=== PATIENT | male | born 1955 | race Caucasian/White ===

== ENCOUNTER → 2020-10-01 12:15 | Outpatient (BNVA) | payer OTHER, SELFPAY | PROVIDERS: Visit Provider Surgery | DX: Z76.89 Persons encountering health services in other specified circumstances (principal) ==

== ENCOUNTER 2020-10-11 06:07 | Day surgery (SDC) | payer OTHER, SELFPAY ==
[2020-10-05 14:45] VITALS: BMI 35.2
--- NOTE | 2020-10-08 13:21 | HO.ANESPROP2 ---
Documented by User: Ana Mcmahon 10/08/20 13:22 HPI - Anesthesia Eval Consult details Narrative: 65yo M for Hernia Repair Inguinal [facility] Past Medical History Medical History Hypercholesterolemia Obesity CARLOZ on CPAP Surgical History Surgical History History of total right hip replacement (~2013) Hx of colonoscopy Social History Social History Are you a primary date night caregiver to a significant other at home: No Do you presently have visiting nurse or other home services: No Alcohol intake: never Smoking Status: Former smoker Second Hand Smoke Exposure: No Use of substances other than those prescribed or required for medical reasons: No Advance Directives: No Advance Directives Information Provided: No Advance Directives on File: No Recently lost weight without trying: No Meds Allergies Allergy/AdvReac Type Severity Reaction Status Date / Time bee pollen [bee stings] Allergy Swelling Verified 10/11/20 06:46 Home Medications Medication Instructions Recorded Confirmed Type atorvastatin 40 mg tablet 40 mg PO DAILY 10/01/20 10/11/20 History Exam Exam Date and Time: October 08, 2020 1321 Height,Weight and Vital Signs: Height 6 ft Weight 117.934 kg Assessment and Plan Assessment Anesthesia Assessment: Chart Reviewed Documented by User: Ivan Kaur 10/11/20 07:10 [facility] Past Medical History Medical History Hypercholesterolemia Obesity CARLOZ on CPAP Family History Family history of problems with anesthesia: No Surgical History Surgical History History of total right hip replacement (~2013) Hx of colonoscopy History of Problems with Anesthesia: No Social History Social History Are you a primary date night caregiver to a significant other at home: No Do you presently have visiting nurse or other home services: No Alcohol intake: never Smoking Status: Former smoker Second Hand Smoke Exposure: No Use of substances other than those prescribed or required for medical reasons: No Advance Directives: No Advance Directives Information Provided: No Advance Directives on File: No Recently lost weight without trying: No Meds Allergies Allergy/AdvReac Type Severity Reaction Status Date / Time bee pollen [bee stings] Allergy Swelling Verified 10/11/20 06:46 Home Medications Medication Instructions Recorded Confirmed Type atorvastatin 40 mg tablet 40 mg PO DAILY 10/01/20 10/11/20 History Assessment and Plan Assessment Anesthesia Assessment: Anesthesia Plan Discussed and Chart Reviewed Final Anesthetic Review NPO: Yes ASA Class: III Final Preanesthetic Review: No Changes in Pt Med Stat, Meds/Allgs Chart Reviewed, Consent Obtained/Reviewed and Anes Risks/Benef Reviewed Patient Risk: Low Procedure Risk: Low Anesthetic Plan Anesthetic Plan: GA and Agree w/ Assess. and Plan Disposition: Standard PACU
[2020-10-11] VITALS (9 sets, daily range): BP systolic 133–150; BP diastolic 67–82; PULSE 53–65; RESP 16; TEMP 35.9–36.6; O2SAT 95–97
[2020-10-11] MEDS: Lactated Ringers 1,000 ML 125 ML IVCONT (06:44)
[2020-10-11] MEDS: ceFAZolin Sodium/Dextrose,Iso 2 GM/50 ML PIGGYBACK IV (06:45)
--- NOTE | 2020-10-11 07:33 | MHC.SHP ---
Pre-Procedural Eval Section A The patient is an INPATIENT: No Changes since office visit: Yes Patient answered all questions; No Cold of Flu in the past 2 weeks, No New Medical Problems and No Changes in Medication The History & Physical has been completed within 30 days and I have reviewed it.: Yes Section B Chief Complaint: Left inguinal hernia Allergies: Allergies Allergy/AdvReac Type Severity Reaction Status Date / Time bee pollen [bee stings] Allergy Swelling Verified 10/11/20 06:46 Plan Diagnosis/Plan: Unchanged Patient has been examined and remains a candidate for the planned procedure
--- NOTE | 2020-10-11 07:41 | PM.OP ---
Brief Operative Note Date of Service: 10/11/20 Pre-op diagnosis: LEFT INGUINAL HERNI Post-op diagnosis: same Procedure: REPAIR OF LEFT INGUINAL HERNIA WITH MESH Implants: PHS LARGE Surgeon: Miguel Angel Sharp MD Anesthesia: GLMA Education Supervisor: Steph Byrd Estimated blood loss (mL): 5 Pathology: other (LEFT HERNIA SAC) Condition: stable Disposition: PACU
--- NOTE | 2020-10-11 08:39 | P.OP_ITS ---
Operative Note Operative Note Date of Service: 10/11/20 Narrative: Preoperative diagnosis: left inguinal hernia Postoperative diagnosis: same Procedure: Repair of left inguinal hernia with mesh Surgeon: Miguel Angel Sharp MD Photoengraving Photographer: NERI Morataya Anesthesia: General LMA Indications: 65-year-old male presenting with a palpable lump in the left groin which increases in size with Valsalva maneuvers and reduces with light pressure. Findings: Patient found to have a large indirect left inguinal hernia without incarceration. This was repaired using an extended large PHS mesh Specimen: Hernia sac left EBL: 5 ml Complications: none Operative details: Patient was brought to the OR placed in a supine position. After administering general anesthesia the patient's abdomen was prepped with ChloraPrep and draped in sterile fashion. A surgical time-out was called and the consent confirmed. Patient received preoperative antibiotics and Venodyne boots were in place. Local anesthesia consisting of 0.75% Sensorcaine was infiltrated over the left inguinal ligament. Incision was then made with a scalpel carried out through subcutaneous tissue past Caroline's fashion up to the external oblique aponeurosis. This was then incised with a scalpel widened with the Metzenbaum scissors. Spermatic cord was then dissected free from the surrounding inguinal canal. The cord was then retracted using a Qing drain. Mild weakness was noted in the inguinal floor. Fibers of the cremasteric muscle were then and a large hernia sac identified. This was dissected down into the internal ring. Sac was opened and contents reduced. The sac was then ligated with a 0 Polysorb suture and excised. This was sent as a specimen labeled left inguinal sac. A large extended PHS mesh was then obtained. The circular underlay was then placed through the large opening of the internal ring. The circular underlay was then deployed in the preperitoneal space. The overlay was then secured to the conjoined tendon, pubic tubercle, and shelving edge of the inguinal ligament. A slit was made in the mesh at the internal ring and wrapped around the spermatic cord. This was then secured to the shelving edge of the inguinal ligament using 0 Polysorb suture. The internal ring was felt to be tight enough to allow passage of the tip of the index finger. Additional sutures were placed medial securing the mesh to the shelving edge of the inguinal ligament. Wounds were then irrigated with saline and suctioned dry. Additional local anesthesia was applied this time. External oblique aponeurosis was then closed using a running 2 0 Polysorb suture. Caroline's fascia and dermis were then reapproximated using interrupted 3 0 Polysorb sutures. Skin was closed using a running subcuticular 4 0 Polysorb suture. Steri-Strips 4 x 4 gauze and Tegaderm were then applied. The patient tolerated the procedure well. Sponge, instrument, needle counts reported as correct. The patient was transported to the PACU in stable condition.
[2020-10-11] MEDS: Acetaminophen 325 MG TABLET 650 MG PO (09:22)
[2020-10-11] MEDS: Ketorolac Tromethamine 15 MG/ML VIAL IVPUSH (09:23)
[2020-10-11] MEDS: oxyCODONE HCl Immed Release 5 MG TABLET PO (09:40)
--- NOTE | 2020-10-11 10:06 | HO.POSTANES ---
Post Anesthesia Evaluation Post Anesthesia Evaluation Vital Signs: Vital Signs Temp Pulse Resp BP Pulse Ox 10/11/20 09:48 98 F 53 16 133/67 97 10/11/20 09:34 56 16 138/72 96 10/11/20 09:19 98 F 56 16 141/78 H 97 10/11/20 09:04 57 16 140/80 H 95 10/11/20 08:59 60 16 142/82 H 96 10/11/20 08:54 65 16 149/81 H 97 10/11/20 08:49 98 F 61 16 144/79 H 96 10/11/20 06:17 96.6 F L 58 16 150/74 H 96 10/11/20 06:15 96.6 F L 16 Anesthesia: General LMA Mental Status: Awake Pain Control: Satisfactory Nausea/Vomiting: None Hydration: Adequate Anesthesia-Related Issues: No Anes. Related Issues
== END 2020-10-11 10:25 ==
LOC: HO.SSS 06:07
PROVIDERS: Visit Provider Surgery
PROC: (CPT 49505; principal; 2020-10-11 07:30)
DX: K40.90 Unilateral inguinal hernia, without obstruction or gangrene, not specified as recurrent (principal)
CPT/HCPCS: 49505; 88302; C1781; J0690; J1885; J2250; J3010

== ENCOUNTER → 2020-10-26 11:33 | Outpatient (BNVA) | payer OTHER, SELFPAY | PROVIDERS: Visit Provider Surgery | DX: Z76.89 Persons encountering health services in other specified circumstances (principal) ==

== ENCOUNTER → 2020-11-26 09:20 | Outpatient (BNVA) | payer OTHER, SELFPAY | PROVIDERS: Visit Provider Surgery ==

== ENCOUNTER 2021-01-11 06:52 | Outpatient (REF) | payer OTHER, SELFPAY ==
--- NOTE | ~2021-01-11 | XR_ITS ---
EXAMINATION: XR KNEE, LEFT CLINICAL INFORMATION: Pain left knee. COMPARISON: None. TECHNIQUE: 4 views of the left knee. FINDINGS: There is mild loss of medial and patellofemoral compartment joint space with minimal suprapatellar joint effusion. There is no loose bodies or bony erosive changes. There is a small anterior tibial enthesophyte. No acute fracture or subluxation. XR/XR knee LT 4V IMPRESSION: Mild degenerative changes medial and patellofemoral compartment with minimal suprapatellar joint effusion.
[2021-01-11 08:03] LABS: Hematocrit 42.7 % (42-52); Hemoglobin 14.6 g/dl (14.0-18.0); Mean Corpuscular HGB Conc 34.2 g/dl (31.0-36.0); Mean Corpuscular Hemoglobin 30.2 pg (27.0-33.0); Mean Corpuscular Volume 88.4 fL (80-98); Mean Platelet Volume 8.5 fL (9.4-12.4); Platelet Count 224 X10*3/uL (160-400); Red Blood Count 4.83 X10*6/uL (4.60-5.80); Red Cell Distribution Width 12.8 % (11.0-16.0)
[2021-01-11 08:08] LABS: Estimated Average Glucose 108 mg/dL; Hemoglobin A1c % 5.4 %
[2021-01-11 08:37] LABS: Alanine Aminotransferase 24 U/L (0-40); Albumin Level 4.2 g/dL (3.5-5.0); Alkaline Phosphatase 108 U/L (39-117); Anion Gap 11 (12-20); Aspartate Amino Transferase 20 U/L (5-37); Bilirubin Total 0.8 mg/dL (0.0-1.0); Blood Urea Nitrogen 21 mg/dL (9-16); Carbon Dioxide 25 mmol/L (22-29); Chloride 106 mmol/L (96-108); Cholesterol 140 mg/dL; Estimated Glomerular Filt Rate > 60; Glucose Fasting 104 mg/dL (60-99); HDL Cholesterol 47 mg/dL; LDL Cholesterol Calculated 80 mg/dl; Potassium 4.1 mmol/L (3.3-5.1); Sodium 138 mmol/L (135-145); Total Protein 6.6 g/dL (6.5-8.0); Triglycerides 67 mg/dL
[2021-01-11 08:49] LABS: Prostate Specific Antigen Scr 3.72 ng/mL (<0.05-4.0)
== END 2021-01-11 06:53 | disposition home or self-care (01) ==
LOC: HO.LAB 06:52
PROVIDERS: PCP Physician Assistant; Visit Provider Physician Assistant
DX: M25.562 Pain in left knee (principal); I10 Essential (primary) hypertension; E78.5 Hyperlipidemia, unspecified; Z13.1 Encounter for screening for diabetes mellitus; Z12.5 Encounter for screening for malignant neoplasm of prostate
CPT/HCPCS: 36415; 73564; 80053; 80061; 83036; 84153; 85027

== ENCOUNTER 2022-01-12 06:56 | Outpatient (REF) | payer OTHER, SELFPAY ==
[2022-01-12 07:21] LABS: Hematocrit 43.4 % (42.0-52.0); Hemoglobin 14.6 g/dl (14.0-18.0); Mean Corpuscular HGB Conc 33.6 g/dl (31.0-36.0); Mean Corpuscular Hemoglobin 30.2 pg (27.0-33.0); Mean Corpuscular Volume 89.9 fL (80.0-98.0); Platelet Count 203 X10*3/uL (160-400); Red Blood Count 4.83 X10*6/uL (4.60-5.80)
[2022-01-12 07:46] LABS: Alanine Aminotransferase 32 U/L (0-40); Albumin Level 4.1 g/dL (3.5-5.0); Alkaline Phosphatase 106 U/L (39-117); Anion Gap 11 (12-20); Aspartate Amino Transferase 20 U/L (5-37); Bilirubin Total 0.6 mg/dL (0.0-1.0); Blood Urea Nitrogen 17 mg/dL (9-16); Calcium 9.7 mg/dL (8.4-10.2); Carbon Dioxide 25 mmol/L (22-29); Chloride 109 mmol/L (96-108); Cholesterol 151 mg/dL; Estimated Glomerular Filt Rate > 60; Glucose Fasting 116 mg/dL (60-99); HDL Cholesterol 48 mg/dL; LDL Cholesterol Calculated 91 mg/dl; Potassium 4.2 mmol/L (3.3-5.1); Sodium 141 mmol/L (135-145); Total Protein 6.7 g/dL (6.5-8.0); Triglycerides 62 mg/dL
[2022-01-12 08:14] LABS: TSH reflex Free T4 7.88 uIU/mL (0.32-4.0)
[2022-01-12 08:19] LABS: Estimated Average Glucose 114 mg/dL; Hemoglobin A1c % 5.6 %
[2022-01-12 11:32] LABS: Free T4 (Free Thyroxine) 0.96 ng/dL (0.71-1.85); Prostate Specific Antigen Scr 3.71 ng/mL (<0.05-4.0)
== END 2022-01-12 06:57 | disposition home or self-care (01) ==
LOC: HO.LAB 06:56
PROVIDERS: PCP Physician Assistant; Visit Provider Physician Assistant
DX: E78.2 Mixed hyperlipidemia (principal); I10 Essential (primary) hypertension; Z12.5 Encounter for screening for malignant neoplasm of prostate
CPT/HCPCS: 36415; 80053; 80061; 82306; 83036; 84153; 84439; 84443; 85027

== ENCOUNTER 2023-08-13 07:10 | Outpatient (REF) | payer OTHER, SELFPAY ==
[2023-08-13 07:34] LABS: Hematocrit 45.1 % (42.0-52.0); Hemoglobin 15.5 g/dl (14.0-18.0); Mean Corpuscular HGB Conc 34.4 g/dl (31.0-36.0); Mean Corpuscular Hemoglobin 30.7 pg (27.0-33.0); Mean Corpuscular Volume 89.3 fL (80.0-98.0); Mean Platelet Volume 8.7 fL (9.4-12.4); Platelet Count 197 X10*3/uL (160-400); Red Blood Count 5.05 X10*6/uL (4.60-5.80); Red Cell Distribution Width 12.8 % (11.0-16.0); White Blood Count 4.9 X10*3/uL (4.8-10.8)
[2023-08-13 08:18] LABS: Alanine Aminotransferase 17 U/L (0-40); Albumin Level 4.1 g/dL (3.5-5.0); Alkaline Phosphatase 100 U/L (39-117); Anion Gap 14 (12-20); Aspartate Amino Transferase 22 U/L (5-37); Bilirubin Total 0.5 mg/dL (0.0-1.0); Blood Urea Nitrogen 16 mg/dL (9-16); Calcium 9.5 mg/dL (8.4-10.2); Carbon Dioxide 19 mmol/L (22-29); Chloride 110 mmol/L (96-108); Cholesterol 210 mg/dL (<200); Estimated Glomerular Filt Rate > 60; Glucose Fasting 113 mg/dL (60-99); HDL Cholesterol 48 mg/dL (>40); LDL Cholesterol Calculated 148 mg/dL (<100); Potassium 4.3 mmol/L (3.3-5.1); Sodium 139 mmol/L (135-145); Total Protein 7.4 g/dL (6.5-8.0); Triglycerides 70 mg/dL (<150)
[2023-08-13 08:29] LABS: TSH reflex Free T4 7.25 uIU/mL (0.32-4.0)
[2023-08-13 09:07] LABS: Free T4 (Free Thyroxine) 0.79 ng/dL (0.71-1.85)
== END 2023-08-13 07:11 | disposition home or self-care (01) ==
LOC: HO.LAB 07:10
PROVIDERS: PCP Physician Assistant; Visit Provider Physician Assistant
DX: R79.89 Other specified abnormal findings of blood chemistry (principal); E78.2 Mixed hyperlipidemia
CPT/HCPCS: 36415; 80053; 80061; 84439; 84443; 85027

== ENCOUNTER 2023-08-15 15:57 | Outpatient (AMB) | payer OTHER, SELFPAY ==
[2023-08-15 15:58] VITALS: BP 140/82; PULSE 55; O2SAT 98; BMI 35.1
--- NOTE | 2023-08-15 15:58 | A.OFFPC_ITS ---
Vital Signs 08/15/23 15:58 Height 6 ft Weight 259 lb BMI 35.1 BP 140/82 H Blood Pressure Location Lt brachial Position Sitting Pulse 55 Pulse Source Pulse Oximeter Pulse Oximetry (%) 98 Oxygen Delivery Method Room Air Intake Visit Reasons: PE Intake Note: Patient is here today for a physical. Wide Area Network Systems Administrator Required: No Accompanied by: Self / Same As Patient Allergies bee pollen [bee stings] Allergy (Verified 08/15/23 16:09) Swelling Medication List - Last Reconciled 08/15/23 by Shawn Sue PA-C blood pressure test kit-large As directed Tobacco use date assessed: 02/08/23 Fall risk assessment: No Falls in past year Last assessed Fall Risk: 08/15/23 Dental Screening Dental Screen Date: 08/15/23 Did you have a dental visit in the last 12 months?: Yes Did you have a dental problem in the last 6 months where you did not have access to dental care?: No Was dental information given to patient?: Patient has dentist HPI PE HPI Details Patient is a 67-year-old male here today for annual physical. ?Patient has a past medical history significant for hyperlipidemia, obesity, osteoarthritis of the hip in needs. .. Obesity: Has unfortunately gained some weight since last office visit. Reports he has been more inactive as of late due to his left knee arthritis. Due for a total knee replacement in August 2023. .. Elevated TSH: Did have elevated TSH in December of 2021. . We have recheck his thyroid and still elevated at 7.3. Have noted some weight gain since last office visit. Patient is still not willing to start levothyroxine at this time would like to wait and check his TSH after he has recovered from his total knee replacement .. Hyperlipidemia: Most recent fasting lipid panel showing elevated total cholesterol and LDL. Was previously statin therapy and we have trialed him off of statin though cholesterol elevated. PLAN: Will restart statin therapy Vaccines:? Up-to-date with tetanus. Decline Flu and COVID, pneumonia, .. Considering shingles vaccine Colonoscopy:? Done in February 2019 - Normal findings, repeat 10 years, [facility] Medical History Obesity CARLOZ on CPAP Hypercholesterolemia Surgical History H/O left inguinal hernia repair (10/11/20) Hx of colonoscopy History of total right hip replacement (~2013) Family History Father Heart attack Sister Breast cancer Social History Housing: House Are you a primary managed care provider to a significant other at home: No Do you presently have visiting nurse or other home services: No Alcohol intake: never Patient Tobacco Use Status: Never used Tobacco Tobacco use type: Cigarette e-Cigarette/Vaping Use: Never Used Second Hand Smoke Exposure: No service: No Current occupational status: employed Current occupation: [employer] Cognitive needs: No Hearing needs: No Vision needs: No Questionnaire Thrive Questionnaire Date Thrive assessed: 02/08/23 JULIO CESAR-7 AMB Questionnaire JULIO CESAR-7 Date JULIO CESAR - 7 assessed: 02/08/23 Source: Developed by Drs. Francois Cruz, Laura Morgan, Blue Bowers and colleagues, with an educational chavo from [employer]. Review of Systems Const Denies body aches, Denies chills, Denies excessive sweating, Denies fatigue, Denies fever(s) and Denies headache(s) Eyes Denies blurry vision ENT Denies dysphagia, Denies vertigo, Denies dizziness, Denies headache(s), Denies hearing loss and Denies tinnitus Card Denies chest pain, Denies chest pain with activity, Denies syncope, Denies irregular heart rhythm and Denies dyspnea Resp Denies chest congestion, Denies cough, Denies hemoptysis, Denies dyspnea and Denies wheezing GI Denies abdominal pain, Denies melena, Denies hematochezia, Denies coffee ground emesis, Denies dysphagia, Denies diarrhea, Denies nausea and Denies vomiting Denies difficulty urinating, Denies dysuria, Denies urinary frequency, Denies urinary hesitancy and Denies urinary urgency Musc Denies arthralgias, Denies limited range of motion, Denies muscle cramps and Denies muscle weakness Skin/Breast Denies rash and Denies skin ulcer Neuro Denies Abnormal speech present, Denies confusion, Denies vertigo, Denies dizziness, Denies syncope, Denies headache(s), Denies memory loss and Denies seizure-like activity Psych Denies anxiety, Denies confusion, Denies depression, Denies memory loss, Denies panic attacks and Denies paranoia Endo Denies excessive sweating, Denies fatigue, Denies flushing, Denies polydipsia and Denies polyuria Aller/Immun Denies wheezing Physical exam (Primary Care) Vital Signs: Last Vital Signs Pulse 55 08/15/23 15:58 BP 140/82 H 08/15/23 15:58 Pulse Ox 98 08/15/23 15:58 Oxygen Delivery Method Room Air 08/15/23 15:58 BMI result Body Mass Index 35.1 BMI Assessment/Plan discussion: High Tobacco/Smoking Status: Tobacco use Status Tobacco use date assessed 02/08/23 08/15/23 16:03 Patient Tobacco Use Status Never used Tobacco 08/15/23 16:03 Tobacco use type Cigarette 08/15/23 16:03 e-Cigarette/Vaping Use Never Used 08/15/23 16:03 Thrive Assessment: Date of Thrive Assessment Date Thrive assessed 02/08/23 08/15/23 16:03 Const Other: Obese General: cooperative, comfortable, no acute distress, alert and awake; No confusion Orientation/consciousness: oriented to person, oriented to place, patient oriented x3 and No confusion HENMT Head: Yes normocephalic Ears: external ears normal and TM's normal bilaterally Face and sinus: No sinus tenderness Mouth: Normal oral and palatal mucosa present and tongue normal Teeth and gingiva: dentition normal and gingiva normal Throat: Yes posterior oropharynx normal, Yes tonsils normal and Yes uvula midline Eyes Conjunctivae: conjunctivae normal Sclerae: sclerae normal Pupils: Equal, round and reactive pupils present EOM: EOMs intact bilaterally Direct Ophthalmoscopy: No no photophobia Neck Neck: Yes no lymphadenopathy, No tender and Yes no JVD Thyroid: Thyroid normal Carotids: no bruits Chest Chest palpation & inspection: no tenderness Resp Effort & Inspection: normal respiratory effort, no audible wheezes, not labored and no stridor Auscultation: no crackles, no rales, no rhonchi and no wheezes Cardio Jugular venous distension: no JVD Rate: regular rate, not bradycardic and not tachycardic Rhythm: regular rhythm Bruits: no carotid bruits Peripheral pulses: Peripheral pulses 2+ throughout GI Inspection: Yes normal to inspection, No abdominal wall ecchymosis and No visible herniation Palpation (GI): Soft to palpation, nontender, no guarding, not rigid and No hepatosplenomegaly present Auscultation: normoactive bowel sounds General: Yes no CVA tenderness Back/Spine/Pelvis Back: no CVA tenderness and No back tenderness Cervical Spine: cervical ROM normal Thoracic/Lumbar Spine: thoracic and lumbar spine normal to inspection, straight leg raise negative bilaterally, No thoraco-lumbar ROM limited and No lumbar spinal tenderness Skin Lesions: no lesions Rashes: no rashes Wounds: no wounds Neuro General: oriented to person, oriented to place, patient oriented x3, CN's II-XI intact bilaterally and No confusion Cranial nerves: Yes Equal, round and reactive pupils present and Yes Normal accommodation reflex present Cognition (Neuro): normal cognition Speech: No Abnormal speech present Gait exam (Neuro): Normal gait present Motor exam (neuro): 5/5 motor strength present throughout Extrem Right upper extremity: full ROM; no cyanosis Left upper extremity: full ROM; no cyanosis Right lower extremity: no edema Left lower extremity: no edema Psych Appearance: grossly normal Mental Status: mental status grossly normal Affect: normal affect Attitude: cooperative Thought process: Normal thought process present Assessment and Plan Assessment & Plan (1) Annual physical exam: Code(s): Z00.00 - Encounter for general adult medical examination without abnormal findings (2) HLD (hyperlipidemia): Code(s): E78.5 - Hyperlipidemia, unspecified Qualifiers: Hyperlipidemia type: mixed hyperlipidemia Qualified Code(s): E78.2 - Mixed hyperlipidemia Plan: Patient's most recent fasting lipid panel showing elevated LDL and total cholesterol. He will restart statin. Goal LDL to be below 130 (3) Elevated TSH: Code(s): R79.89 - Other specified abnormal findings of blood chemistry Plan: Noted elevated TSH on previous labs at 7.2. Patient not interested in starting medication will look work on lifestyle modifications to reduce his weight. Has been a little more sedentary as of late due to his knee issue. He is due for total knee replacement in Aug 2023 (4) Obese: Code(s): E66.9 - Obesity, unspecified Qualifiers: Body mass index: BMI 35.0-35.9 Obesity classification: adult class 2 (BMI 35 - 39.9) Obesity type: due to excess calories Serious obesity comorbidity presence: without serious comorbidity Qualified Code(s): E66.09 - Other obesity due to excess calories; Z68.35 - Body mass index [BMI] 35.0-35.9, adult Plan: Patient does understand his BMI is over 30 will work on being more physically active and adapting to better eating habits to reduce his weight. (5) Osteoarthritis of left knee: Code(s): M17.12 - Unilateral primary osteoarthritis, left knee Qualifiers: Osteoarthritis type: primary Qualified Code(s): M17.12 - Unilateral primary osteoarthritis, left knee Plan: He has establish care with orthopedic in [place] ([place] [facility]) and is due for total left knee arthroplasty in August 2023 (6) HTN (hypertension): Code(s): I10 - Essential (primary) hypertension Qualifiers: Hypertension type: primary hypertension Qualified Code(s): I10 - Essential (primary) hypertension Plan: Today's blood pressure slightly elevated in office.. Has been able to mostly manage his blood pressure with lifestyle modifications. Unfortunately again noted some weight gain since last office visit. He plans on getting more physically active after his total knee replacement recovery. Orders: Orders Comprehensive [place]. Panel Fast 08/15/23 E78.2 - Mixed hyperlipidemia Prostate Specific Antigen Scr 08/15/23 E78.2 - Mixed hyperlipidemia, Z12.5 - Encounter for screening for malignant neoplasm of prostate Microalbumin, Random (w Creat) 08/15/23 I10 - Essential (primary) hypertension TSH reflex Free T4 08/15/23 R79.89 - Other specified abnormal findings of blood chemistry Lipid Panel 08/15/23 E78.2 - Mixed hyperlipidemia Coding Level of Care Code Est Pt Prev Care >65y(62249) Diagnoses Annual physical exam Z00.00 Mixed hyperlipidemia E78.2 Hyperlipidemia type: mixed hyperlipidemia Elevated TSH R79.89 Class 2 obesity due to excess calories without serious comorbidity with body mass index (BMI) of 35.0 to 35.9 in adult E66.09; Z68.35 Body mass index: BMI 35.0-35.9 Obesity classification: adult class 2 (BMI 35 - 39.9) Obesity type: due to excess calories Serious obesity comorbidity presence: without serious comorbidity Primary osteoarthritis of left knee M17.12 Osteoarthritis type: primary Primary hypertension I10 Hypertension type: primary hypertension
== END 2023-08-15 16:34 | disposition home or self-care (01) ==
PROVIDERS: PCP Physician Assistant; Visit Provider Physician Assistant
DX: Z00.00 Encounter for general adult medical examination without abnormal findings (principal); E78.2 Mixed hyperlipidemia; R79.89 Other specified abnormal findings of blood chemistry; E66.09 Other obesity due to excess calories; Z68.35 Body mass index [BMI] 35.0-35.9, adult; M17.12 Unilateral primary osteoarthritis, left knee; I10 Essential (primary) hypertension
CPT/HCPCS: 99397

== ENCOUNTER 2024-01-24 08:16 | Outpatient (REF) | payer OTHER, SELFPAY ==
[2024-01-24 09:20] LABS: Alanine Aminotransferase 19 U/L (0-40); Albumin Level 3.9 g/dL (3.5-5.0); Alkaline Phosphatase 125 U/L (39-117); Anion Gap 12 (12-20); Aspartate Amino Transferase 16 U/L (5-37); Bilirubin Total 0.5 mg/dL (0.0-1.0); Blood Urea Nitrogen 19 mg/dL (9-16); Calcium 9.4 mg/dL (8.4-10.2); Carbon Dioxide 22 mmol/L (22-29); Chloride 110 mmol/L (96-108); Cholesterol 198 mg/dL (<200); Estimated Glomerular Filt Rate > 60; Glucose Fasting 113 mg/dL (60-99); HDL Cholesterol 48 mg/dL (>40); LDL Cholesterol Calculated 137 mg/dL (<100); Potassium 3.8 mmol/L (3.3-5.1); Sodium 140 mmol/L (135-145); Total Protein 7.2 g/dL (6.5-8.0); Triglycerides 65 mg/dL (<150)
[2024-01-24 09:35] LABS: Prostate Specific Antigen Scr 4.63 ng/mL (<0.05-4.0); TSH reflex Free T4 5.29 uIU/mL (0.32-4.0)
[2024-01-24 09:56] LABS: Creatinine Urine 175.69 mg/dL; Microalbum/Creatinine Ratio Ur 5.6 ug/mg cr (<30)
[2024-01-24 10:23] LABS: Free T4 (Free Thyroxine) 0.88 ng/dL (0.71-1.85)
== END 2024-01-24 08:17 | disposition home or self-care (01) ==
LOC: HO.LAB 08:16
PROVIDERS: PCP Physician Assistant; Visit Provider Physician Assistant
DX: Z12.5 Encounter for screening for malignant neoplasm of prostate (principal); E78.2 Mixed hyperlipidemia; I10 Essential (primary) hypertension; R79.89 Other specified abnormal findings of blood chemistry
CPT/HCPCS: 36415; 80053; 80061; 82043; 82570; 84153; 84439; 84443

== ENCOUNTER 2024-01-28 10:15 | Outpatient (AMB) | payer MEDICARE, SELFPAY ==
--- NOTE | 2024-01-28 10:09 | A.OFFPC_ITS ---
Vital Signs 01/28/24 10:11 01/28/24 10:13 Height 6 ft Weight 251 lb BMI 34.0 BP 142/86 H Blood Pressure Location Lt brachial Lt brachial Position Sitting Sitting Pulse 44 L Pulse Source Pulse Oximeter Pulse Oximetry (%) 100 Oxygen Delivery Method Room Air Intake Visit Reasons: 6 MONTH F/U Production Support Consultant Required: No Accompanied by: Self / Same As Patient Allergies bee pollen [bee stings] Allergy (Verified 01/28/24 10:27) Swelling Medication List - Last Reconciled 01/28/24 by Shawn Sue PA-C blood pressure test kit-large As directed Tobacco use date assessed: 01/28/24 Fall risk assessment: No Falls in past year Last assessed Fall Risk: 01/28/24 Dental Screening Dental Screen Date: 01/28/24 Did you have a dental visit in the last 12 months?: Yes Did you have a dental problem in the last 6 months where you did not have access to dental care?: No Was dental information given to patient?: Patient has dentist HPI 6 MONTH F/U HPI Details Patient is a 68-year-old male here today for a follow-up visit. ?Patient has a past medical history significant for hyperlipidemia, obesity, osteoarthritis of the hip in needs. .. Obesity: Has lost weight since last office visit, did his knee replaced which has helped him being more physically active. Continues to go to the gym several times a week. Now retired as well. .. Elevated TSH: Did find elevated TSH in December of 2021. . We have recheck his thyroid and has improved though still slightly elevated. Have noted some weight gain since last office visit. Patient is still not willing to start levothyroxine at this time would like to wait and check his TSH after he has recovered from his total knee replacement .. Hyperlipidemia: Has stopped using statin therapy as he does not want to take any medication at this time. Has been watching his diet and being more physically active. Most recent lipid panel showing improved total cholesterol and LDL Reviewed patient's lab and noted a slightly elevated PSA. Otherwise denies any urinary symptoms. Does report some weakening in his urinary stream over the last several years. ? BPH. Will continue to follow every 6 months. Laboratory Tests 01/12/22 01/12/22 01/12/22 07:11 07:11 07:11 RBC Creatinine Fasting Glucose 116 H Hemoglobin A1c % 5.6 Cholesterol 151 LDL Cholesterol, C alc PSA Screen 3.71 TSH 7.88 H Free T4 0.96 Urine Microalbumin 08/13/23 08/13/23 01/24/24 07:22 07:22 08:27 RBC 5.05 Creatinine 0.96 0.83 Fasting Glucose 113 H 113 H Hemoglobin A1c % Cholesterol 210 H LDL Cholesterol, C alc 148 H 137 H PSA Screen TSH 7.25 H Free T4 Urine Microalbumin 01/24/24 01/24/24 01/24/24 08:27 08:27 08:30 RBC Creatinine Fasting Glucose Hemoglobin A1c % Cholesterol 198 LDL Cholesterol, C alc PSA Screen 4.63 H TSH 5.29 H Free T4 Urine Microalbumin 10.0 PFSH Medical History Obesity CARLOZ on CPAP Hypercholesterolemia Surgical History H/O left inguinal hernia repair (10/11/20) Hx of colonoscopy History of total right hip replacement (~2013) Family History Father Heart attack Sister Breast cancer Social History Housing: House Are you a primary children's zoo caretaker to a significant other at home: No Do you presently have visiting nurse or other home services: No Alcohol intake: never Patient Tobacco Use Status: Never used Tobacco Tobacco use type: Cigarette e-Cigarette/Vaping Use: Never Used Second Hand Smoke Exposure: No service: No Current occupational status: employed Current occupation: [employer] Cognitive needs: No Hearing needs: No Vision needs: No Questionnaire PHQ-9 Over the last 2 weeks, how often have you been bothered by any of the following problems? 1. Little interest or pleasure in doing things: not at all 2. Feeling down, depressed, or hopeless: not at all 3. Trouble falling or staying asleep, or sleeping too much: not at all 4. Feeling tired or having little energy: not at all 5. Poor appetite or overeating: not at all 6. Feeling bad about yourself - or that you are a failure or have let yourself or your family down: not at all 7. Trouble concentrating on things, such as reading the newspaper or watching television: not at all 8. Moving or speaking so slowly that other people could have noticed. Or the opposite - being so fidgety or restless that you have been moving around a lot more than usual: not at all 9. Thoughts that you would be better off or of hurting yourself in some way: not at all Total score: 0 Depression Screening Interpretation: Negative Depression Screening Done: Yes 03051 - PHQ-9 Billing: Yes Source: Developed by Drs. Francois Cruz, Laura Morgan, Blue Bowers and colleagues, with an educational chavo from [employer]. Thrive Questionnaire Date Thrive assessed: 01/28/24 I am a: Patient What is your living situation today?: I have a steady place to live Within the past 12 months, did the food you bought not last and you didn't have the money to get more?: Never true Within the past 12 months, did you worry whether your food would run out before you got money to buy more?: Never true Do you have trouble paying for medicines?: No Do you have trouble getting transportation to medical appointments?: No Do you have trouble paying your heating and electricity bill?: No Do you have trouble taking care of your child, family member or friend?: No Do you have trouble with day-to-day activities such as bathing, preparing meals, shopping, managing finances, etc.?: No Are you currently unemployed and looking for a job?: No Please select the resources that you would like help with: Care for elder or disabled Currently or been in a relationship where the following occur: no concerns re ported THRIVE Score: 0 AUDIT C Alcohol Use Questionnaire (AUDIT-C) 1. How often do you have a drink containing alcohol?: Never 3. How often do you have six or more drinks on one occasion?: Never Total Score: 0 JULIO CESAR-7 AMB Questionnaire JULIO CESAR-7 Date JULIO CESAR - 7 assessed: 01/28/24 Feeling nervous, anxious, or on edge: 0 = Not at all Not being able to stop or control worryin = Not at all Worrying too much about different things: 0 = Not at all Trouble relaxin = Not at all Being so restless that it is hard to sit still: 0 = Not at all Becoming easily annoyed or irritable: 0 = Not at all Feeling afraid as if something awful might happen: 0 = Not at all Total JULIO CESAR-7 score (0-4 normal; 5-9 mild; 10-14 moderate; 15-21 severe): 0 Source: Developed by Drs. Francois Cruz, Laura Morgan, Blue Bowers and colleagues, with an educational chavo from [employer]. JULIO CESAR-7 Assessment Billing JULIO CESAR-7 Assessment Tool: pt declined-do not bill Review of Systems Const Denies headache(s) Eyes Denies loss of vision ENT Denies vertigo, Denies dizziness, Denies headache(s) and Denies sore throat Card Denies chest pain, Denies leg edema and Denies lightheadedness Resp Denies cough, Denies hemoptysis and Denies wheezing GI Denies abdominal pain, Denies melena, Denies constipation, Denies diarrhea and Denies vomiting Denies dysuria, Denies urinary frequency and Denies urinary urgency Musc Denies arthralgias, Denies joint swelling, Denies numbness and Denies tingling Neuro Denies Abnormal speech present, Denies behavioral changes, Denies vertigo, Denies dizziness, Denies headache(s), Denies loss of vision, Denies memory loss, Denies numbness and Denies tingling Psych Denies anxiety, Denies behavioral changes, Denies depression, Denies memory loss and Denies panic attacks Miguel/Lymph Denies easy bleeding and Denies easy bruising Aller/Immun Denies wheezing Physical exam (Primary Care) Vital Signs: Last Vital Signs Pulse 44 L 01/28/24 10:13 BP 142/86 H 01/28/24 10:13 Pulse Ox 100 01/28/24 10:13 Oxygen Delivery Method Room Air 01/28/24 10:13 BMI result Body Mass Index 34.0 Tobacco/Smoking Status: Tobacco use Status Tobacco use date assessed 01/28/24 01/28/24 10:26 Patient Tobacco Use Status Never used Tobacco 01/28/24 10:11 Tobacco use type Cigarette 01/28/24 10:11 e-Cigarette/Vaping Use Never Used 01/28/24 10:11 PHQ-9: PHQ-9 Score PHQ-9: Total score 0 01/28/24 10:26 Depression Screening Interpretation: Negative Thrive Assessment: Date of Thrive Assessment Date Thrive assessed 01/28/24 01/28/24 10:26 Currently or been in a relationship where the following occur: no concerns reported Const General: healthy appearing, no acute distress, alert and awake Nutritional Appearance: well nourished Orientation/consciousness: oriented to person, oriented to place and oriented to time HENMT Ears: TM's normal bilaterally General nose exam: Normal nasal mucous membranes and turbinates present Eyes Conjunctivae: conjunctivae normal Sclerae: sclerae normal Pupils: Equal, round and reactive pupils present Neck Neck: Yes no lymphadenopathy and Yes no JVD Thyroid: Thyroid normal Carotids: no bruits Resp Effort & Inspection: normal respiratory effort and not tachypneic Auscultation: no crackles, no rales, no rhonchi and no wheezes Cardio Rate: regular rate Rhythm: regular rhythm Heart sounds: no murmurs and normal S1 and S2 GI Palpation (GI): Soft to palpation, nontender, no hepatomegaly and no splenomegaly Auscultation: normal bowel sounds Skin General skin exam: no rashes or lesions noted and dry skin Neuro General: oriented to person, oriented to place and oriented to time Cranial nerves: Yes Equal, round and reactive pupils present Speech: No Abnormal speech present Gait exam (Neuro): Normal gait present Motor exam (neuro): no tremor noted Extrem Right upper extremity: full ROM Left upper extremity: full ROM Right lower extremity: full ROM; no edema Left lower extremity: full ROM; no edema Psych Mental Status: mental status grossly normal Speech and movement: Normal speech and movement present Affect: normal affect Attitude: cooperative Thought process: Normal thought process present Results AMB Hemoglobin A1c AMB Hemoglobin A1c 5.6 % Last Edit by KIRAN Thorne on 01/28/24 10:28 Assessment and Plan Assessment & Plan (1) HLD (hyperlipidemia): Code(s): E78.5 - Hyperlipidemia, unspecified Qualifiers: Hyperlipidemia type: mixed hyperlipidemia Qualified Code(s): E78.2 - Mixed hyperlipidemia Plan: Patient's most recent fasting lipid panel showing improved total cholesterol and LDL. He has not been using any statin therapy over last 2 months. He would like to stay away from using cholesterol medication at this time. Goal LDL to be below 130 (2) Elevated TSH: Code(s): R79.89 - Other specified abnormal findings of blood chemistry Plan: Most recent TSH has improved. Has lost weight since being more physically active and going to the gym more often. Will continue to follow TSH. (3) Obese: Code(s): E66.9 - Obesity, unspecified Qualifiers: Obesity type: due to excess calories Obesity classification: adult class 2 (BMI 35 - 39.9) Serious obesity comorbidity presence: without serious comorbidity Body mass index: BMI 35.0-35.9 Qualified Code(s): E66.09 - Other obesity due to excess calories; Z68.35 - Body mass index [BMI] 35.0-35.9, adult Plan: Has lost weight since last office visit. Patient does understand his BMI is over 30 will work on being more physically active and adapting to better eating habits to reduce his weight. (4) HTN (hypertension): Code(s): I10 - Essential (primary) hypertension Qualifiers: Hypertension type: primary hypertension Qualified Code(s): I10 - Essential (primary) hypertension Plan: Today's blood pressure slightly elevated in office. Has been able to mostly manage his blood pressure with lifestyle modifications. Would like to start monitoring blood pressure at home with goal blood pressure to be below 140/90 (5) Elevated PSA: Code(s): R97.20 - Elevated prostate specific antigen [PSA] Plan: Most recent PSA slightly elevated. He does report some weak urinary stream that has been evident over last several years. We did discuss possibly starting tamsulosin. Will recheck his PSA in 6 months to see if there is any elevation. (6) Osteoarthritis of left knee: Code(s): M17.12 - Unilateral primary osteoarthritis, left knee Qualifiers: Osteoarthritis type: primary Qualified Code(s): M17.12 - Unilateral primary osteoarthritis, left knee Plan: Recently had left knee total arthroplasty that went well. Has been more physi vineet active and has lost weight. He is happy with the results of his left knee replacement. Orders: Orders Comprehensive [place]. Panel Fast Today I10 - Essential (primary) hypertension Prostate Specific Antigen Scr Today R97.20 - Elevated prostate specific antigen [PSA], Z12.5 - Encounter for screening for malignant neoplasm of prostate Vitamin D 25-OH Total Today E78.2 - Mixed hyperlipidemia AMB Hemoglobin A1c Today Z13.1 - Encounter for screening for diabetes mellitus Microalbumin, Random (w Creat) Today I10 - Essential (primary) hypertension Lipid Panel Today E78.2 - Mixed hyperlipidemia Complete Blood Count no Diff Today I10 - Essential (primary) hypertension Complete Blood Count no Diff 6 Months I10 - Essential (primary) hypertension Coding Level of Care Code Est Pt Level 4 (31515) Diagnoses Mixed hyperlipidemia E78.2 Hyperlipidemia type: mixed hyperlipidemia Elevated TSH R79.89 Class 2 obesity due to excess calories without serious comorbidity with body mass index (BMI) of 35.0 to 35.9 in adult E66.09; Z68.35 Obesity type: due to excess calories Obesity classification: adult class 2 (BMI 35 - 39.9) Serious obesity comorbidity presence: without serious comorbidity Body mass index: BMI 35.0-35.9 Primary hypertension I10 Hypertension type: primary hypertension Elevated PSA R97.20 Primary osteoarthritis of left knee M17.12 Osteoarthritis type: primary
[2024-01-28 10:13] VITALS: BP 142/86; PULSE 44; O2SAT 100; BMI 34.0
== END 2024-01-28 11:07 | disposition home or self-care (01) ==
LOC: HO.HMGH 10:15
PROVIDERS: PCP Physician Assistant; Visit Provider Physician Assistant
DX: E78.2 Mixed hyperlipidemia (principal); R79.89 Other specified abnormal findings of blood chemistry; E66.09 Other obesity due to excess calories; Z68.35 Body mass index [BMI] 35.0-35.9, adult; I10 Essential (primary) hypertension; R97.20 Elevated prostate specific antigen [PSA]; M17.12 Unilateral primary osteoarthritis, left knee; Z13.1 Encounter for screening for diabetes mellitus
CPT/HCPCS: 83036; 99214

== ENCOUNTER 2024-08-01 06:04 | Outpatient (REF) | payer MEDICARE, SELFPAY ==
[2024-08-01 07:42] LABS: Hematocrit 42.9 % (42.0-52.0); Hemoglobin 14.7 g/dl (14.0-18.0); Mean Corpuscular HGB Conc 34.3 g/dl (31.0-36.0); Mean Corpuscular Hemoglobin 30.5 pg (27.0-33.0); Mean Platelet Volume 8.3 fL (9.4-12.4); Platelet Count 222 X10*3/uL (160-400); Red Blood Count 4.82 X10*6/uL (4.60-5.80); Red Cell Distribution Width 12.6 % (11.0-16.0); White Blood Count 5.2 X10*3/uL (4.8-10.8)
[2024-08-01 08:24] LABS: Creatinine Urine 116.52 mg/dL; Microalbumin Urine < 5.0 mg/L
[2024-08-01 08:44] LABS: Alanine Aminotransferase 23 U/L (0-40); Alkaline Phosphatase 99 U/L (39-117); Anion Gap 12 (12-20); Aspartate Amino Transferase 18 U/L (5-37); Bilirubin Total 0.6 mg/dL (0.0-1.0); Blood Urea Nitrogen 13 mg/dL (9-16); Calcium 9.4 mg/dL (8.4-10.2); Carbon Dioxide 24 mmol/L (22-29); Chloride 108 mmol/L (96-108); Cholesterol 206 mg/dL (<200); Estimated Glomerular Filt Rate > 60; Glucose Fasting 111 mg/dL (60-99); HDL Cholesterol 47 mg/dL (>40); LDL Cholesterol Calculated 134 mg/dL (<100); Potassium 3.7 mmol/L (3.3-5.1); Sodium 140 mmol/L (135-145); Triglycerides 127 mg/dL (<150)
[2024-08-01 08:49] LABS: Prostate Specific Antigen Scr 4.93 ng/mL (<0.05-4.0)
[2024-08-01 08:54] LABS: Vitamin D 25-OH Total 57.8 ng/mL (>30)
== END 2024-08-01 06:05 | disposition home or self-care (01) ==
LOC: HO.LAB 06:04
PROVIDERS: PCP Physician Assistant; Visit Provider Physician Assistant
DX: I10 Essential (primary) hypertension (principal); Z12.5 Encounter for screening for malignant neoplasm of prostate; R97.20 Elevated prostate specific antigen [PSA]; E78.2 Mixed hyperlipidemia
CPT/HCPCS: 36415; 80053; 80061; 82043; 82306; 82570; 84153; 85027

== ENCOUNTER 2024-08-04 08:31 | Outpatient (AMB) | payer MEDICARE, SELFPAY ==
--- NOTE | 2024-08-04 08:43 | AM.OFFVISMDC ---
Intake Vital Signs 08/04/24 08:46 Height 6 ft Weight 262 lb 8 oz BMI 35.6 BP 134/78 Blood Pressure Location Lt brachial Position Sitting Pulse 50 Pulse Source Pulse Oximeter Pulse Oximetry (%) 98 Oxygen Delivery Method Room Air Intake Visit Reasons: IPPE Intake Note: Patient is here for an Annual Wellness Visit. Pt decline flu shot today. Control And Recovery Combat Rescue Required: No Foreclosure Paralegal: Foreclosure Paralegal offered & declined Accompanied by: Self / Same As Patient Allergies bee pollen [bee stings] Allergy (Verified 08/04/24 08:46) Swelling HPI IPPE HPI Details Patient is a 68-year-old male here today for annual wellness visit. Patient has a past medical history significant for hypertension, hyperlipidemia and obesity. Today we discussed patient's hoh of care. We did also discuss patient's comprehensive care plan which was placed in to patient's document. Vaccines:? Up-to-date with tetanus. Decline Flu and COVID, pneumonia, .. Considering shingles vaccine Colonoscopy:? Done in February 2019 - Normal findings, repeat 10 years, Laboratory Tests 01/24/24 01/28/24 08/01/24 08:27 10:28 06:23 RBC 4.82 Fasting Glucose 111 H Hgb A1c (Clinic) 5.6 Cholesterol 198 206 H PSA Screen 4.93 H HPI Comments History of Present Illness Details reviewed past medical history- yes reviewed surgical / hospitalization history- yes reviewed current medications- yes reviewed family history- yes home safety throw rugs? grab bars? raised toilet seat? working smoke detectors? activities of daily living difficulty bathing or showering? difficulty dressing? difficulty using the toilet? difficulty getting in and out of bed? difficulty walking? receives help from other person's with any of the above tasks? instrumental activities of daily living uses telephone - gets to place out of walking distance- go shopping for groceries- repairs own meals- does own minor home maintenance- does own laundry- does own housework- manages own money- currently takes medication- end of life planning discussed advanced directives- yes advanced directives on file? discussed wishes expressed in advanced directives. fall risk have you had any falls with injuries in the past year? have you had 2 or more falls in the past year? fall risk assessment: [facility] Medical History Obesity CARLOZ on CPAP Hypercholesterolemia Surgical History H/O left inguinal hernia repair (10/11/20) Hx of colonoscopy History of total right hip replacement (~2013) Family History Father Heart attack Sister Breast cancer Social History Housing: House Are you a primary livestock caretaker to a significant other at home: No Do you presently have visiting nurse or other home services: No Alcohol intake: never Patient Tobacco Use Status: Never used Tobacco Tobacco use type: Cigarette e-Cigarette/Vaping Use: Never Used Second Hand Smoke Exposure: No service: No Current occupational status: employed Current occupation: [employer] Cognitive needs: No Hearing needs: No Vision needs: No Questionnaire Medicare Wellness Checkup [age] What gender do you identify with?: male During the past 4 weeks, how much have you been bothered by emotional problems such as feeling anxious, depressed, irritable, sad or downhearted, and blue?: not at all During the past 4 weeks, has your physical & emotional health limited your social activities with family, friends, neighbors, or groups?: not at all During the past 4 weeks, how much bodily pain have you generally had?: no pain During the past 4 weeks, was someone available to help you if you needed & wanted help?: yes, as much as I wanted During the past 4 weeks, what was the hardest physical activity you could do for at least 2 minutes?: very heavy Can you get to places out of walking distance without help? (For eg., can you travel alone on buses, taxis or drive your car?): Yes Can you go shopping for groceries or clothes without someone's help?: Yes Can you prepare your own meals?: Yes Can you do your housework without help?: Yes Because of any health problems, do you need the help of another person with your personal care needs such as eating, bathing, dressing or getting around the house?: No Can you handle your own money without help?: Yes During the past 4 weeks, how would you rate your health in general?: excellent During the past 4 weeks how have things been going for you?: very well; could hardly better Are you having difficulties driving your car?: no Do you always fasten your seat belt when you are in a car?: yes, usually During past 4 weeks, have you been bothered by the following: never: Falling or dizzy when standing up, Sexual problems?, Trouble eating well?, Teeth or denture problems?, Problems using the telephone? and Tiredness or fatigue? Have you fallen 2 or more times in the past year?: No Are you afraid of falling?: No Are you a smoker?: no During the past 4 weeks, how many drinks of wine, beer, or other alcoholic beverages did you have?: no alcohol at all Do you exercise for about 20 minutes 3 or more times a week?: yes, most of the time Have you been given information to help with the following?: no: Hazards in your house that might hurt you? and no: Keeping track of your medications? How often do you have trouble taking medicines the way you have been told to take them?: I do not have to take medicine How confident are you that you can control & manage most of your health problems?: very confident What is your race?: White Mini Mental State Exam (MMSE) Orientation What is the (year) (season) (date) (day) (month)?: year and date Where are we (state) (county) (town or city) (hospital) (floor)?: town or city Attention & Calculation (CHOOSE ONE) Spell WORLD backwards (DLROW): 5 letters Score Score: 8 Activity of Daily Living Bathing - sponge bath, tub bath or shower: receives no assistance (gets in/out by self, if usual bathing means Dressing - getting clothes from closets & drawers, including inner/outer garments & fasteners.: gets clothes & gets completely dressed without help Toileting - going to the 'toilet room' for urine/bowel elimination & cleaning self/arranging clothes: goes to toilet room, cleans self, arranges clothes without help Transfer: moves in & out of bed and chair without help (may use support object) Continence: controls urination/bowel movements completely by self Feeding: feeds self without help Total Score: 0 Information obtained from: patient Using telephone: independent Traveling: independent Shopping: independent Preparing meals: independent Housework: independent Taking medicine: independent Managing money: independent PHQ-9 Over the last 2 weeks, how often have you been bothered by any of the following problems? 1. Little interest or pleasure in doing things: not at all 2. Feeling down, depressed, or hopeless: not at all 3. Trouble falling or staying asleep, or sleeping too much: not at all 4. Feeling tired or having little energy: not at all 5. Poor appetite or overeating: not at all 6. Feeling bad about yourself - or that you are a failure or have let yourself or your family down: not at all 7. Trouble concentrating on things, such as reading the newspaper or watching television: not at all 8. Moving or speaking so slowly that other people could have noticed. Or the opposite - being so fidgety or restless that you have been moving around a lot more than usual: not at all 9. Thoughts that you would be better off or of hurting yourself in some way: not at all Total score: 0 Depression Screening Interpretation: Negative Depression Screening Done: Yes 25575 - PHQ-9 Billing: Yes Source: Developed by Drs. Francois Cruz, Blue Marc and colleagues, with an educational chavo from [employer]. Thrive Questionnaire Date Thrive assessed: 01/28/24 Are you currently unemployed and looking for a job?: No JULIO CESAR-7 AMB Questionnaire JULIO CESAR-7 Date JULIO CESAR - 7 assessed: 01/28/24 Source: Developed by Drs. Francois Cruz, Blue Marc and colleagues, with an educational chavo from [employer]. Physical Exam Vital Signs: Last Vital Signs Pulse 50 08/04/24 08:46 BP 134/78 08/04/24 08:46 Pulse Ox 98 08/04/24 08:46 Oxygen Delivery Method Room Air 08/04/24 08:46 BMI result Body Mass Index 35.6 HEENT Other: hearing screening whisper test-pass Eyes Other: vision screening- 20 20 OS OD OU Other: urinary incontinence? no Neuro Other: balance Romberg- normal tandem walk test- able walk-in turned test- able rise from sit to stand- within 2 seconds Assessment & Plan Assessment & Plan (1) Annual wellness visit: Code(s): Z00.00 - Encounter for general adult medical examination without abnormal findings Plan: As per [facility] Quality Reporting (2019) Depression/Bipolar (159/160/161/177) PHQ-9: Total score: 0 Coding Level of Care Code Medicare First (G0438) Diagnoses Annual wellness visit Z00.00 CPT Codes Advance Care Planning - Time spent: 1-15 minutes, not on file ([id number]) Advance Care Planning Advance Care Planning discussion: Exists, not on file Date of discussion: 08/04/24 Forms completed: MOLST Time spent: 1-15 minutes, not on file Actual minutes spent: 4
[2024-08-04 08:46] VITALS: BP 134/78; PULSE 50; O2SAT 98; BMI 35.6
== END 2024-08-04 09:23 | disposition home or self-care (01) ==
PROVIDERS: PCP Physician Assistant; Visit Provider Physician Assistant
DX: Z00.00 Encounter for general adult medical examination without abnormal findings (principal)

== ENCOUNTER → 2024-08-04 08:31 | Outpatient (BNVA) | payer MEDICARE, SELFPAY | PROVIDERS: PCP Physician Assistant; Visit Provider Physician Assistant | DX: Z00.00 Encounter for general adult medical examination without abnormal findings (principal); E78.5 Hyperlipidemia, unspecified | CPT/HCPCS: G0402 ==

== ENCOUNTER 2025-02-02 08:28 | Outpatient (AMB) | payer MEDICARE, SELFPAY ==
--- NOTE | 2025-02-02 08:36 | MHC.PC.OV ---
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 Accompanied by: Self / Same As Patient Allergies bee pollen [bee stings] Allergy (Verified 02/02/25 08:45) Swelling Medication List - Last Reconciled 02/02/25 by Shawn Sue PA-C blood pressure test kit-large As directed Tobacco use date assessed: 02/02/25 Fall risk assessment: No Falls in past year Last assessed Fall Risk: 02/02/25 Dental Screening Dental Screen Date: 02/02/25 Did you have a dental visit in the last 12 months?: Yes Did you have a dental problem in the last 6 months where you did not have access to dental care?: No Was dental information given to patient?: Patient has dentist HPI f/u HTN/ HLD HPI Details Patient is a 69-year-old male here today for a follow-up visit. ?Patient has a past medical history significant for hyperlipidemia, obesity, osteoarthritis of the hip in needs. .. Class 2 Obesity: Has unfortunately gained a bit of weight since last office visit. He does admit to not being as physically active and some dietary indiscretion. .. Elevated TSH: Did find elevated TSH in December of 2021. . We have recheck his thyroid and has improved though still slightly elevated. Have noted some weight gain since last office visit. Patient is still not willing to start levothyroxine at this time would like to wait and check his TSH after he has recovered from his total knee replacement .. Hyperlipidemia: Has stopped using statin therapy as he does not want to take any medication at this time. Has been watching his diet and being more physically active. Most recent lipid panel showing improved total cholesterol and LDL Reviewed patient's lab and noted a slightly elevated PSA. Otherwise denies any urinary symptoms. Does report some weakening in his urinary stream over the last several years. ? BPH. Will continue to follow every 6 months. [facility] Medical History (Updated 04/07/25 @ 10:43 by Shawn Sue PA-C) Obesity CARLOZ on CPAP Hypercholesterolemia Surgical History H/O left inguinal hernia repair (10/11/20) Hx of colonoscopy History of total right hip replacement (~2013) Family History Father Heart attack Sister Breast cancer Social History Housing: House Are you a primary care team coordinator scheduler to a significant other at home: No Do you presently have visiting nurse or other home services: No Alcohol intake: never Patient Tobacco Use Status: Never used Tobacco Tobacco use type: Cigarette e-Cigarette/Vaping Use: Never Used Second Hand Smoke Exposure: No service: No Current occupational status: employed Current occupation: [employer] Cognitive needs: No Hearing needs: No Vision needs: No Questionnaire PHQ-9 Over the last 2 weeks, how often have you been bothered by any of the following problems? 1. Little interest or pleasure in doing things: not at all 2. Feeling down, depressed, or hopeless: not at all 3. Trouble falling or staying asleep, or sleeping too much: not at all 4. Feeling tired or having little energy: not at all 5. Poor appetite or overeating: not at all 6. Feeling bad about yourself - or that you are a failure or have let yourself or your family down: not at all 7. Trouble concentrating on things, such as reading the newspaper or watching television: not at all 8. Moving or speaking so slowly that other people could have noticed. Or the opposite - being so fidgety or restless that you have been moving around a lot more than usual: not at all 9. Thoughts that you would be better off or of hurting yourself in some way: not at all Total score: 0 Depression Screening Interpretation: Negative Depression Screening Done: Yes 76334 - PHQ-9 Billing: Yes Source: Developed by Drs. Francois Cruz, Laura Morgan, Blue Bowers and colleagues, with an educational chavo from [employer]. Thrive Questionnaire Date Thrive assessed: 02/02/25 I am a: Patient What is your living situation today?: I have a steady place to live Within the past 12 months, did the food you bought not last and you didn't have the money to get more?: Never true Within the past 12 months, did you worry whether your food would run out before you got money to buy more?: Never true Do you have trouble paying for medicines?: No Do you have trouble getting transportation to medical appointments?: No Do you have trouble paying your heating and electricity bill?: No Do you have trouble taking care of your child, family member or friend?: No Do you have trouble with day-to-day activities such as bathing, preparing meals, shopping, managing finances, etc.?: No Are you currently unemployed and looking for a job?: No Are you interested in more education?: No Please select the resources that you would like help with: None Currently or been in a relationship where the following occur: No concerns reported THRIVE Score: 0 AUDIT C Alcohol Use Questionnaire (AUDIT-C) 1. How often do you have a drink containing alcohol?: Never 3. How often do you have six or more drinks on one occasion?: Never Total Score: 0 JULIO CESAR-7 AMB Questionnaire JULIO CESAR-7 Date JULIO CESAR - 7 assessed: 02/02/25 Feeling nervous, anxious, or on edge: 0 = Not at all Not being able to stop or control worryin = Not at all Worrying too much about different things: 0 = Not at all Trouble relaxin = Not at all Being so restless that it is hard to sit still: 0 = Not at all Becoming easily annoyed or irritable: 0 = Not at all Feeling afraid as if something awful might happen: 0 = Not at all Total JULIO CESAR-7 score (0-4 normal; 5-9 mild; 10-14 moderate; 15-21 severe): 0 Source: Developed by Drs. Francois Cruz, Laura Morgan, Blue Bowers and colleagues, with an educational chavo from [employer]. JULIO CESAR-7 Assessment Billing JULIO CESAR-7 Assessment Tool: JULIO CESAR-7 Assessment 18500 Review of Systems Const Denies headache(s) Eyes Denies loss of vision ENT Denies vertigo, Denies dizziness, Denies headache(s) and Denies sore throat Card Denies chest pain, Denies leg edema and Denies lightheadedness Resp Denies cough, Denies hemoptysis and Denies wheezing GI Denies abdominal pain, Denies melena, Denies constipation, Denies diarrhea and Denies vomiting Denies dysuria, Denies urinary frequency and Denies urinary urgency Musc Denies arthralgias, Denies joint swelling, Denies numbness and Denies tingling Neuro Denies Abnormal speech present, Denies behavioral changes, Denies vertigo, Denies dizziness, Denies headache(s), Denies loss of vision, Denies memory loss, Denies numbness and Denies tingling Psych Denies anxiety, Denies behavioral changes, Denies depression, Denies memory loss and Denies panic attacks Migule/Lymph Denies easy bleeding and Denies easy bruising Aller/Immun Denies wheezing Physical exam (Primary Care) Vital Signs: Last Vital Signs Temp 96.9 F 02/02/25 08:38 Pulse 58 02/02/25 08:38 BP 120/78 02/02/25 08:38 Pulse Ox 96 02/02/25 08:38 Oxygen Delivery Method Room Air 02/02/25 08:38 BMI result Body Mass Index 35.8 BMI Assessment/Plan discussion: High BMI High, discussed plan: lifestyle, weight reduction, dietary and physical activity Tobacco/Smoking Status: Tobacco use Status Tobacco use date assessed 02/02/25 02/02/25 08:42 Patient Tobacco Use Status Never used Tobacco 02/02/25 08:42 Tobacco use type Cigarette 02/02/25 08:42 e-Cigarette/Vaping Use Never Used 02/02/25 08:42 PHQ-9: PHQ-9 Score PHQ-9: Total score 0 02/02/25 08:45 Depression Screening Interpretation: Negative Thrive Assessment: Date of Thrive Assessment Date Thrive assessed 02/02/25 02/02/25 08:42 Currently or been in a relationship where the following occur: No concerns reported Const General: healthy appearing, no acute distress, alert and awake Nutritional Appearance: well nourished Orientation/consciousness: oriented to person, oriented to place and oriented to time HENMT Ears: TM's normal bilaterally General nose exam: Normal nasal mucous membranes and turbinates present Eyes Conjunctivae: conjunctivae normal Sclerae: sclerae normal Pupils: Equal, round and reactive pupils present Neck Neck: Yes no lymphadenopathy and Yes no JVD Thyroid: Thyroid normal Carotids: no bruits Resp Effort & Inspection: normal respiratory effort and not tachypneic Auscultation: no crackles, no rales, no rhonchi and no wheezes Cardio Rate: regular rate Rhythm: regular rhythm Heart sounds: no murmurs and normal S1 and S2 GI Palpation (GI): Soft to palpation, nontender, no hepatomegaly and no splenomegaly Auscultation: normal bowel sounds Skin General skin exam: no rashes or lesions noted and dry skin Neuro General: oriented to person, oriented to place and oriented to time Cranial nerves: Yes Equal, round and reactive pupils present Speech: No Abnormal speech present Gait exam (Neuro): Normal gait present Motor exam (neuro): no tremor noted Extrem Right upper extremity: full ROM Left upper extremity: full ROM Right lower extremity: full ROM; no edema Left lower extremity: full ROM; no edema Psych Mental Status: mental status grossly normal Speech and movement: Normal speech and movement present Affect: normal affect Attitude: cooperative Thought process: Normal thought process present Coding Level of Care Code Est Pt Level 4 (56738) Diagnoses Mixed hyperlipidemia E78.2 Hyperlipidemia type: mixed hyperlipidemia Primary hypertension I10 Hypertension type: primary hypertension Elevated PSA R97.20 Class 2 obesity E66.812 Additional Codes PHQ-9 - 43516 - PHQ-9 Billing: Yes ([id number]) JULIO CESAR-7 Assessment Billing - JULIO CESAR-7 Assessment Tool: JULIO CESAR-7 Assessment [id number] ([id number]) Assessment & Plan Assessment & Plan (1) HLD (hyperlipidemia): Code(s): E78.5 - Hyperlipidemia, unspecified Category: Medical Qualifiers: Hyperlipidemia type: mixed hyperlipidemia Qualified Code(s): E78.2 - Mixed hyperlipidemia Plan: Patient has a history of hyperlipidemia. Has been making lifestyle and dietary changes though has been difficult for him. He was on statin therapy in the past though has been able to wean himself off. Goal LDL is to remain below 130 and total cholesterol to be below 200. (2) HTN (hypertension): Code(s): I10 - Essential (primary) hypertension Category: Medical Qualifiers: Hypertension type: primary hypertension Qualified Code(s): I10 - Essential (primary) hypertension Plan: Patient's blood pressure acceptable today in office. Was previously on blood pressure medication though has weaned himself off and blood pressure seems to be well managed with lifestyle changes. Goal blood pressures to remain below 140/90 (3) Elevated PSA: Code(s): R97.20 - Elevated prostate specific antigen [PSA] Category: Medical Plan: Patient has a history of slightly elevated PSA. Fortunately does not have any urinary symptoms. Will continue to check PSA and consider finasteride or urological evaluation. (4) Class 2 obesity: Code(s): E66.812 - Obesity, class 2 Category: Medical Plan: Patient does understand his BMI is over 35 and work on being more physically active and adapting to better eating habits to reduce his weight Orders: Orders Comprehensive [place]. Panel Fast Today I10 - Essential (primary) hypertension Complete Blood Count no Diff Today I10 - Essential (primary) hypertension TSH reflex Free T4 Today R79.89 - Other specified abnormal findings of blood chemistry Lipid Panel Today E78.2 - Mixed hyperlipidemia Microalbumin, Random (w Creat) Today I10 - Essential (primary) hypertension Patient Instructions: Goal: Total cholesterol to be below 200, LDL to be below 130, blood pressure to be below 140/90 Barriers: Adherence to physical activity and healthy eating habits
[2025-02-02 08:38] VITALS: BP 120/78; PULSE 58; TEMP 36.1; O2SAT 96; BMI 35.8
== END 2025-02-02 09:05 | disposition home or self-care (01) ==
LOC: HO.HMCH 08:28
PROVIDERS: PCP Physician Assistant; Visit Provider Physician Assistant
DX: E78.2 Mixed hyperlipidemia (principal); E66.812 Obesity, class 2; Z68.35 Body mass index [BMI] 35.0-35.9, adult; I10 Essential (primary) hypertension; R97.20 Elevated prostate specific antigen [PSA]

== ENCOUNTER → 2025-02-02 08:28 | Outpatient (BNVA) | payer MEDICARE, SELFPAY | PROVIDERS: PCP Physician Assistant; Visit Provider Physician Assistant | DX: I10 Essential (primary) hypertension (principal); M17.10 Unilateral primary osteoarthritis, unspecified knee; E66.812 Obesity, class 2; R97.20 Elevated prostate specific antigen [PSA]; E78.2 Mixed hyperlipidemia; R79.89 Other specified abnormal findings of blood chemistry; Z68.35 Body mass index [BMI] 35.0-35.9, adult | CPT/HCPCS: 96127; 99212 ==

== ENCOUNTER 2025-07-30 06:56 | Outpatient (REF) | payer MEDICARE, SELFPAY ==
[2025-07-30 07:51] LABS: Hematocrit 39.7 % (42.0-52.0); Hemoglobin 14.0 g/dl (14.0-18.0); Mean Corpuscular HGB Conc 35.3 g/dl (31.0-36.0); Mean Corpuscular Hemoglobin 30.7 pg (27.0-33.0); Mean Corpuscular Volume 87.1 fL (80.0-98.0); NRBC Abs Auto 0.000 X10*3/uL (0.0-0.012); NRBC Pct Auto 0.0 /100WBC (0.0-0.2); Platelet Count 213 X10*3/uL (160-400); Red Blood Count 4.56 X10*6/uL (4.60-5.80); White Blood Count 5.7 X10*3/uL (4.8-10.8)
[2025-07-30 08:23] LABS: Alanine Aminotransferase 23 U/L (0-40); Albumin Level 4.1 g/dL (3.5-5.0); Alkaline Phosphatase 109 U/L (39-117); Anion Gap 11 (12-20); Aspartate Amino Transferase 21 U/L (5-37); Blood Urea Nitrogen 19 mg/dL (9-16); Calcium 9.1 mg/dL (8.4-10.2); Carbon Dioxide 24 mmol/L (22-29); Chloride 108 mmol/L (96-108); Cholesterol 218 mg/dL (<200); Estimated Glomerular Filt Rate > 60; HDL Cholesterol 44 mg/dL (>40); Potassium 3.9 mmol/L (3.3-5.1); Sodium 139 mmol/L (135-145); Total Protein 6.9 g/dL (6.5-8.0); Triglycerides 96 mg/dL (<150)
[2025-07-30 08:45] LABS: Microalbum/Creatinine Ratio Ur 6.3 ug/mg cr (<30)
[2025-07-30 09:40] LABS: Free T4 (Free Thyroxine) 0.89 ng/dL (0.71-1.85)
== END 2025-07-30 06:57 | disposition home or self-care (01) ==
LOC: HO.LAB 06:56
PROVIDERS: PCP Physician Assistant; Visit Provider Physician Assistant
DX: I10 Essential (primary) hypertension (principal); E78.2 Mixed hyperlipidemia; R79.89 Other specified abnormal findings of blood chemistry
CPT/HCPCS: 36415; 80053; 80061; 82043; 82570; 84439; 84443; 85027

== ENCOUNTER 2025-08-04 08:54 | Outpatient (AMB) | payer MEDICARE, SELFPAY ==
--- NOTE | 2025-08-04 09:18 | A.OFFVIS_ITS ---
Intake Vital Signs 08/04/25 09:19 08/04/25 09:25 Height 6 ft Weight 258 lb 2 oz BMI 35.0 BP 156/86 H 140/78 H Blood Pressure Location Lt brachial Lt brachial Position Sitting Sitting Pulse 69 Pulse Source Pulse Oximeter Temp 97.3 F Temp Source Temporal Artery Scan Pulse Oximetry (%) 95 Oxygen Delivery Method Room Air Intake Visit Reasons: AWV Intake Note: Patient is here for an Annual Wellness Visit. Oral And Maxillofacial Surgery Resident Required: No Tablet Machine Operator: Tablet Machine Operator offered & declined Accompanied by: Self / Same As Patient Allergies bee pollen (bee stings) Allergy (Verified 08/04/25 09:28) Swelling Medication List - Last Reconciled 08/04/25 by Shawn Sue PA-C blood pressure test kit-large As directed HPI AWV HPI Details Patient is a 69-year-old male here today for an annual wellness visit. ?Patient has a past medical history significant for hyperlipidemia, obesity, oa, osteoarthritis of the hip in needs. Today we discussed patient's [place] of care , end of life planning and comprehensive care plan. Concern--> The patient experiences cervical spine pain, described as persistent tightness in the neck, particularly noticeable in the morning. He has not experienced any radiating pain to the arms or hands CHRONIC MEDICAL CONDITIONS--> .. Class 2 Obesity: Has been able to lose a few lb since last office visit. He does admit to not being as physically active and some dietary indiscretion. .. Elevated TSH: Did find elevated TSH in December of 2021. . We have recheck his thyroid and has improved though still slightly elevated. Have noted some weight gain since last office visit. Strongly recommended starting levothyroxine. He will look into levothyroxine and do his own research. .. Hyperlipidemia: Will try to to thyroid. Has stopped using statin therapy as he does not want to take any medication at this time. Has been watching his diet and being more physically active. Most recent lipid panel showing improved total cholesterol and LDL Reviewed patient's lab and noted a slightly elevated PSA. Otherwise denies any urinary symptoms. Does report some weakening in his urinary stream over the last several years. ? BPH. Will continue to follow every 6 months. Laboratory Tests 01/24/24 08/01/24 07/30/25 08:27 06:23 07:03 RBC Hgb Creatinine Fasting Glucose 111 H Cholesterol LDL Cholesterol, C alc TSH 5.29 H Urine Microalbumin 7.0 07/30/25 07:15 RBC 4.56 L Hgb 14.0 Creatinine 0.88 Fasting Glucose 103 H Cholesterol 218 H LDL Cholesterol, C alc 155 H TSH 9.89 H Urine Microalbumin HPI Comments History of Present Illness Details reviewed past medical history- yes reviewed surgical / hospitalization history- yes reviewed current medications- yes reviewed family history- yes home safety throw rugs? grab bars? raised toilet seat? working smoke detectors? activities of daily living difficulty bathing or showering? difficulty dressing? difficulty using the toilet? difficulty getting in and out of bed? difficulty walking? receives help from other person's with any of the above tasks? instrumental activities of daily living uses telephone - gets to place out of walking distance- go shopping for groceries- repairs own meals- does own minor home maintenance- does own laundry- does own housework- manages own money- currently takes medication- end of life planning discussed advanced directives- yes advanced directives on file? discussed wishes expressed in advanced directives. fall risk have you had any falls with injuries in the past year? have you had 2 or more falls in the past year? fall risk assessment: [facility] Medical History (Updated 08/04/25 @ 14:02 by Shawn Sue PA-C) Obesity CARLOZ on CPAP Hypercholesterolemia Surgical History H/O left inguinal hernia repair (10/11/20) Hx of colonoscopy History of total right hip replacement (~2013) Family History Father Heart attack Sister Breast cancer Social History Housing: House Are you a primary care program resident to a significant other at home: No Do you presently have visiting nurse or other home services: No Alcohol intake: never Patient Tobacco Use Status: Never used Tobacco Tobacco use type: Cigarette e-Cigarette/Vaping Use: Never Used Second Hand Smoke Exposure: No service: No Current occupational status: employed Current occupation: [employer] Cognitive needs: No Hearing needs: No Vision needs: No Questionnaire Medicare Wellness Checkup What [age] What gender do you identify with?: male During the past 4 weeks, how much have you been bothered by emotional problems such as feeling anxious, depressed, irritable, sad or downhearted, and blue?: not at all During the past 4 weeks, has your physical & emotional health limited your social activities with family, friends, neighbors, or groups?: not at all During the past 4 weeks, how much bodily pain have you generally had?: no pain During the past 4 weeks, was someone available to help you if you needed & wanted help?: yes, as much as I wanted During the past 4 weeks, what was the hardest physical activity you could do for at least 2 minutes?: very heavy Can you get to places out of walking distance without help? (For eg., can you travel alone on buses, taxis or drive your car?): Yes Can you go shopping for groceries or clothes without someone's help?: Yes Can you prepare your own meals?: Yes Can you do your housework without help?: Yes Because of any health problems, do you need the help of another person with your personal care needs such as eating, bathing, dressing or getting around the house?: No Can you handle your own money without help?: Yes During the past 4 weeks, how would you rate your health in general?: excellent During the past 4 weeks how have things been going for you?: very well; could hardly better Are you having difficulties driving your car?: no Do you always fasten your seat belt when you are in a car?: yes, usually During past 4 weeks, have you been bothered by the following: never: Falling or dizzy when standing up, Sexual problems?, Trouble eating well?, Teeth or denture problems?, Problems using the telephone? and Tiredness or fatigue? Have you fallen 2 or more times in the past year?: No Are you afraid of falling?: No Are you a smoker?: no During the past 4 weeks, how many drinks of wine, beer, or other alcoholic beverages did you have?: no alcohol at all Do you exercise for about 20 minutes 3 or more times a week?: yes, all the time Have you been given information to help with the following?: yes: Hazards in your house that might hurt you? and yes: Keeping track of your medications? How often do you have trouble taking medicines the way you have been told to take them?: I do not have to take medicine How confident are you that you can control & manage most of your health pro blems?: very confident What is your race?: White Mini Mental State Exam (MMSE) Orientation What is the (year) (season) (date) (day) (month)?: year Where are we (state) (county) (town or city) (hospital) (floor)?: town or city Attention & Calculation (CHOOSE ONE) Ask pt to begin with 100 & count backward by 7. Stop after 5 repeats. If pt cannot ask them to spell the word WORLD backward.: 65 Spell WORLD backwards (DLROW): 5 letters Score Score: 8 Activity of Daily Living Bathing - sponge bath, tub bath or shower: receives no assistance (gets in/out by self, if usual bathing means Dressing - getting clothes from closets & drawers, including inner/outer garments & fasteners.: gets clothes & gets completely dressed without help Toileting - going to the 'toilet room' for urine/bowel elimination & cleaning self/arranging clothes: goes to toilet room, cleans self, arranges clothes without help Transfer: moves in & out of bed and chair without help (may use support object) Continence: controls urination/bowel movements completely by self Feeding: feeds self without help Total Score: 0 Information obtained from: patient Using telephone: independent Traveling: independent Preparing meals: independent Housework: independent Taking medicine: independent Managing money: independent PHQ-9 Over the last 2 weeks, how often have you been bothered by any of the following problems? 1. Little interest or pleasure in doing things: not at all 2. Feeling down, depressed, or hopeless: not at all 3. Trouble falling or staying asleep, or sleeping too much: not at all 4. Feeling tired or having little energy: not at all 5. Poor appetite or overeating: not at all 6. Feeling bad about yourself - or that you are a failure or have let yourself or your family down: not at all 7. Trouble concentrating on things, such as reading the newspaper or watching television: not at all 8. Moving or speaking so slowly that other people could have noticed. Or the opposite - being so fidgety or restless that you have been moving around a lot more than usual: not at all 9. Thoughts that you would be better off or of hurting yourself in some way: not at all Total score: 0 Depression Screening Interpretation: Negative Depression Screening Done: Yes Source: Developed by Drs. Francois Cruz, Laura Morgan, Blue Bowers and colleagues, with an educational chavo from [employer] ([employer]). Thrive Questionnaire Date Thrive assessed: 02/02/25 I am a: Patient What is your living situation today?: I have a steady place to live Within the past 12 months, did the food you bought not last and you didn't have the money to get more?: Never true Within the past 12 months, did you worry whether your food would run out before you got money to buy more?: Never true Do you have trouble paying for medicines?: No Do you have trouble getting transportation to medical appointments?: No Do you have trouble paying your heating and electricity bill?: No Do you have trouble taking care of your child, family member or friend?: No Do you have trouble with day-to-day activities such as bathing, preparing meals, shopping, managing finances, etc.?: No Are you currently unemployed and looking for a job?: No Are you interested in more education?: No Please select the resources that you would like help with: None Currently or been in a relationship where the following occur: No concerns reported THRIVE Score: 0 JULIO CESAR-7 AMB Questionnaire JULIO CESAR-7 Date JULIO CESAR - 7 assessed: 02/02/25 Feeling nervous, anxious, or on edge: 0 = Not at all Not being able to stop or control worryin = Not at all Worrying too much about different things: 0 = Not at all Trouble relaxin = Not at all Being so restless that it is hard to sit still: 0 = Not at all Becoming easily annoyed or irritable: 0 = Not at all Feeling afraid as if something awful might happen: 0 = Not at all Total JULIO CESAR-7 score (0-4 normal; 5-9 mild; 10-14 moderate; 15-21 severe): 0 Source: Developed by Laura Salgado.W. Eddie, Blue Bowers and colleagues, with an educational chavo from [employer] ([employer]). AUDIT C Alcohol Use Questionnaire (AUDIT-C) 1. How often do you have a drink containing alcohol?: Never Total Score: 0 Physical Exam Vital Signs: Last Vital Signs Temp 97.3 F 08/04/25 09:19 Pulse 69 08/04/25 09:19 BP 140/78 H 08/04/25 09:25 Pulse Ox 95 08/04/25 09:19 Oxygen Delivery Method Room Air 08/04/25 09:19 BMI result Body Mass Index 35.0 HEENT Other: hearing screening whisper test- passed Eyes Other: vision screening- 20 20 OS OD OU Other: urinary incontinence? no Neuro Other: balance Romberg- normal tandem walk test- able walk-in turned test- able rise from sit to stand- within 2 seconds Assessment & Plan Assessment & Plan (1) Medicare annual wellness visit, subsequent: Code(s): Z00.00 - Encounter for general adult medical examination without abnormal findings Plan: As per HPI (2) Borderline high cholesterol: Code(s): E78.9 - Disorder of lipoprotein metabolism, unspecified Plan: Patient's most recent lipid panel showing borderline high cholesterol and LDL. Was previously on cholesterol medication though was able to work on dietary modifications to reduce cholesterol. (3) Elevated TSH: Code(s): R79.89 - Other specified abnormal findings of blood chemistry Plan: Patient does seem to have of hypo functioning thyroid and recommended levothyroxine though patient would like to hold off for now and do some research about levothyroxine. We did discuss that his high cholesterol could be managed with a better functioning thyroid. (4) Cervical spine pain: Code(s): M54.2 - Cervicalgia Plan: Cervical spine pain will be evaluated with an x-ray, and physical therapy will be initiated to address muscular issues. If symptoms persist, further imaging such as an MRI may be considered Orders: Orders XR cervical spine 4V Today M54.2 - Cervicalgia Prostate Specific Antigen Scr Today R97.20 - Elevated prostate specific antigen [PSA], Z12.5 - Encounter for screening for malignant neoplasm of prostate Comprehensive [place]. Panel Fast Today E78.2 - Mixed hyperlipidemia Cortisol Random Today R79.89 - Other specified abnormal findings of blood chemistry PT Evaluation and Treatment Today M54.2 - Cervicalgia Lipid Panel Today E78.2 - Mixed hyperlipidemia TSH reflex Free T4 Today R79.89 - Other specified abnormal findings of blood chemistry Quality Reporting (2019) Depression/Bipolar (159/160/161/177) PHQ-9: Total score: 0 Coding Level of Care Code Medicare Subsequent (G0439) Est Pt Level 4 (09327) Diagnoses Medicare annual wellness visit, subsequent Z00.00 Borderline high cholesterol E78.9 Elevated TSH R79.89 Cervical spine pain M54.2 CPT Codes Advance Care Planning - Time spent: 1-15 minutes, on File ([id number]) Advance Care Planning Advance Care Planning discussion: Exists, not on file Date of discussion: 08/04/25 Forms completed: MOLST Time spent: 1-15 minutes, on File Actual minutes spent: 4 Did not discuss due to Cultural/Spiritual beliefs: No
[2025-08-04 09:19] VITALS: BP 156/86; PULSE 69; TEMP 36.3; O2SAT 95; BMI 35.0
[2025-08-04 09:25] VITALS: BP 140/78
== END 2025-08-04 10:18 | disposition home or self-care (01) ==
LOC: HO.HMCH 08:55
PROVIDERS: PCP Physician Assistant; Visit Provider Physician Assistant
DX: Z00.00 Encounter for general adult medical examination without abnormal findings (principal); M54.2 Cervicalgia; E78.9 Disorder of lipoprotein metabolism, unspecified; R79.89 Other specified abnormal findings of blood chemistry

== ENCOUNTER → 2025-08-04 08:54 | Outpatient (BNVA) | payer MEDICARE, SELFPAY | PROVIDERS: PCP Physician Assistant; Visit Provider Physician Assistant | DX: Z00.00 Encounter for general adult medical examination without abnormal findings (principal); M16.10 Unilateral primary osteoarthritis, unspecified hip; E66.812 Obesity, class 2; R79.89 Other specified abnormal findings of blood chemistry; R97.20 Elevated prostate specific antigen [PSA]; M54.2 Cervicalgia; E78.2 Mixed hyperlipidemia; Z68.35 Body mass index [BMI] 35.0-35.9, adult | CPT/HCPCS: 96127; 99212 ==

== ENCOUNTER 2025-09-25 16:30 | Emergency (ER) | payer MEDICARE, SELFPAY ==
--- NOTE | ~2025-09-25 | CT_ITS ---
CLINICAL HISTORY: HTN, weakness CT head without contrast Comparison: None provided Findings: Midline shift of the septum from yesju-do-pewe of 0.7 cm with prominence of the right lateral ventricle, axial image number 15 of 31 series 3. No significant atrophy-like change or white matter disease. There is no sinus or mastoid fluid. The orbits are within normal limits. No skull fracture. IMPRESSION: 1. 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 2. No acute intracranial findings. This document has been electronically signed by: Sherman Jung MD on 09/25/2025 17:21:48
--- NOTE | ~2025-09-25 | XR_ITS ---
CLINICAL HISTORY: chest pain 2 view chest x-ray Comparison: None provided Findings: No consolidation or effusion. Normal size heart. No acute fracture. IMPRESSION: 1. No acute findings. This document has been electronically signed by: Sherman Jung MD on 09/25/2025 17:19:55
[2025-09-25 16:38] VITALS: BP 173/91; PULSE 77; RESP 20; TEMP 37; O2SAT 97; BMI 38.4
--- NOTE | 2025-09-25 16:42 | ED_ITS ---
HPI - General Adult General Chief complaint: General Medical Stated complaint: Increase BP Time Seen by Provider: 09/25/25 17:29 History of Present Illness ED Provider: Clifford Sandoval MD HPI narrative: This is a 70-year-old healthy male on no prescription medications who mainly presents concerned about skipped beat palpitations ongoing for months but slightly increased sensation of this over the past few days he has been taking his blood pressure due to feeling vague lightheadedness he described in triage headache but to me actually denies headache or any pain or pressure sensation he just feels ?off ?or not himself slightly. No word-finding difficulty vision symptoms focal motor or sensory complaints. Partner at the bedside denies that he has been acting unusual or having unusual speech or any other notable behavior or neurologic findings that she has witnessed. The patient primarily concerned about this and blood pressure measurements maximally 206/80 at home he denies having chest pain to me he says that it is this skipped beat palpitation that is nonexertional and random throughout the day though increasing. No cough or hemoptysis no leg swelling no prior DVT or PE no known coronary disease no family or personal history of early [place] sudden cardiac . No known neurologic history seizures Related Data Previous Rx's ?Medication ?Instructions ?Recorded blood pressure test kit-large #1 ea 01/11/22 Allergies Allergy/AdvReac Type Severity Reaction Status Date / Time bee pollen (bee stings) Allergy Swelling Verified 09/25/25 16:44 [facility] Past Medical History Medical History (Updated 09/26/25 @ 00:01 by Thom Vazquez) Obesity CARLOZ on CPAP Hypercholesterolemia Surgical History H/O left inguinal hernia repair (10/11/20) Hx of colonoscopy History of total right hip replacement (~2013) Family History Family History Father Heart attack Sister Breast cancer Social History Social History Housing: House Are you a primary healthcare economics consultant to a significant other at home: No Do you presently have visiting nurse or other home services: No Alcohol intake: never Patient Tobacco Use Status: Never used Tobacco Tobacco use type: Cigarette e-Cigarette/Vaping Use: Never Used Second Hand Smoke Exposure: No service: No Current occupational status: employed Current occupation: [employer] Cognitive needs: No Hearing needs: No Vision needs: No Physical Exam ED Exam Exam: GENERAL: Well appearing. No apparent distress. Alert. HEAD/NECK: Normal to inspection. Neck supple. No cervical lymphadenopathy. EYES: Normal to inspection. Sclera non-icteric. ENMT: External nose normal. RESPIRATORY: Respiratory effort normal. Lungs clear to auscultation bilaterally. CARDIOVASCULAR: Regular rate. Normal rhythm. No murmur. No rubs. GI: Soft, non-tender, non-distended. No rebound or guarding. No masses palpable. No hepatosplenomegaly. SKIN: No jaundice. NEUROLOGICAL: Alert. PSYCHIATRIC: Alert. Appearance appropriate for situation. Attitude cooperative. OTHER: Comprehensive Neuro exam: Face symmetric, tongue midline, strong symmetric eye closure, pupils symmetric and reactive to light, intact sensation to the face throughout, intact strong face deviation and shoulder shrug. Sensation intact to light touch throughout * 5 out of 5 strength in bilateral upper extremities, 5 and 5 strength in lower extremities Vital Signs: Vital Signs - 24 hr 09/25/25 16:38 09/25/25 18:24 Temperature 98.6 F 97.8 F Pulse Rate 77 67 Respiratory Rate 20 16 Blood Pressure 173/91 H 163/57 H Pulse Oximetry 97 98 Oxygen Delivery Method Room Air Room Air BMI result Body Mass Index 38.4 Course Course Course Narrative: Rapid medical examination performed in triage by Hiral Houser PA-C: Patient is a 70 year old assigned male at presenting to the emergency department with chest tightness and feeling generally unwell with elevated blood pressure. Patient states that he has felt generally unwell and checked his blood pressure that was elevated. Detailed physical exam and review of systems are deferred to the healthcare economics consultant. EKG, labs, imaging, swabs ordered. Patient placed back in the waiting room pending room availability and results. Reevaluation(s) Reevaluation #1: sep 28 @ 330p: I spoke to Nirmal PIEDRA, pts Primary care. He will order MR outpatient. Medical Decision Making Medical Decision Making MDM Narrative: Medical Decision Making: Subjective palpitations this is likely secondary to frequent premature atrial contractions. He is in sinus rhythm as no ischemic changes. Does not appear to have significant caffeine intake or other stimulants. He does take some supplements. [place] at this point is not limiting his physical capacity no indication for metoprolol follow up with PCP for Holter monitor and/or Cardiology referral. Regarding vague lightheadedness or off feeling a CT was ordered by provider in triage and results with likely incidental finding of subtle enlargement of the right lateral ventricle with subtle shift. After reading this finding I went back and fully evaluated and took additional history. I find no presence of headache behavior change or any neurologic symptoms or signs whatsoever. This is likely an incidental finding particularly given the lack of mass bleed or other findings to suggest an etiology of the shift and lateral ventricle enlargement. Could be congenital. He does not recall any prior neurologic imaging. He and I spoke about this at length given it was late on a Sunday and I would be a likely to get an emergency department MRI and did not think the patient needed to be hospitalized urgently for this study alone he and I with the presence of the had a shared decision-making discussion to closely coordinate follow up with his PCP for outpatient set up of MRI. In doing so I reached out to [facility] who unfortunately was not on-call and did not respond to my text immediately. But I have used other means of communication to contact PCP, neurology team and neuro Radiology to expedite outpatient MRI to evaluate for this CT finding. I will follow up closely with the patient on Sunday to ensure close Preliminary Favored Differential Diagnosis: Essential hypertension, white coat hypertension, tachyarrhythmia, atrial or premature ventricular beats, electrolyte derangement, thyroid disorder, brain mass, brain bleed among additional considered etiologies Testing Interpreted Independently: ECG: Sinus rhythm with frequent PACs. No ischemic changes no RV strain Radiology or Lab testing Results Reviewed: ?See below for details Consults: ?See below for details Independent Historians/External Chart Reviews: ?See below for details Social Determinants of Health Impacting MDM/Planning: ?See below for details Discharge Plan Discharge Clinical Impression: Midline shift of brain, Atrial premature beats Patient Disposition: Home, Self-Care Instructions: Hydrocephalus (DC), Premature Atrial Contractions (ED) Additional Instructions: DISCHARGE DIAGNOSES: Intermittent elevated blood pressure measurements. No formal diagnosis of hypertension or elevated blood pressure or essential hypertension has been provided to you. Premature atrial contractions likely the cause of your palpitations these are benign can follow up with your primary doctor in this regard maybe need an Holter monitor for extended telemetry/cardiac monitoring. Possible incidental finding and/or congenital variant with prominence of the right lateral ventricle and subtle midline shift of the brain of unclear clinical significance HISTORY OF PRESENTATION: ?Lightheadedness, skipped beat palpitation and elevated blood pressure measurements at home EMERGENCY DEPARTMENT COURSE,TESTS, TREATMENTS: While in the ED today you had a CT scan of the brain CT impression is detailed below DISCHARGE MEDICATIONS: ?[We have made no changes to your regular medication regimen] FOLLOW-UP: ?Call your primary or general physician soon as possible to discuss your symptoms, your ED visit and to discuss follow up plans We recommend you calling our neurologist the numbers provided here below. Please also call your primary physician. We have sent an e-mail to directly coordinate your expedited outpatient evaluation and possible further brain imaging to your primary doctor, 1 of our neurologists, and our neuroradiologist if you do not hear from your doctor by Sunday please be sure to call the neurology office. If you are not provided an appointment for any of these doctors in the next 10 days return to the emergency department preferably earlier in the day on a week day because you will need brain imaging If in the interval time you develop severe headache, numbness tingling weakness, difficulty speaking, vision changes or any other significant neurologic symptoms like we discussed return immediately to the emergency department INSTRUCTIONS ?& RETURN PRECAUTIONS: If any symptoms change first call your primary physician, if it is after-hours your primary doctors office should have a provider energy consultant you can speak with. If the symptoms are severe or very concer maggy to you then call 911 or return to the ED. Clifford Sandoval MD Emergency Physician [facility] Prescriptions: No Action (DME) blood pressure test kit-large Kit See Rx Instructions .Route Qty: 1 0RF Rx Instructions: As directed Interventions: ED Discharge Assessment Last Done: 09/25/25 18:24 Discharge Date/Time: 09/25/25 18:25 Print Language: [place]
--- NOTE | 2025-09-25 16:44 | ECG_ITS ---
Test Reason : CHEST PAIN Blood Pressure : */* mmHG Vent. Rate : 71 BPM Atrial Rate : 71 BPM P-R Int : 226 ms QRS Dur : 88 ms QT Int : 378 ms P-R-T Axes : 21 18 32 degrees QTcB Int : 410 ms Sinus rhythm with 1st degree A-V block with Premature atrial complexes Possible Anterior infarct , age undetermined Abnormal ECG No significant changes when compared with the previous EKG of december 27, 2017 Referred By: Hiral Houser Electronically Signed By: LARRY REDMAN
--- NOTE | 2025-09-25 17:57 | MHC.EDTECH ---
verbal order from MD to not collect bloodwork
--- NOTE | 2025-09-25 18:01 | PC.NURSE ---
per Dr. Meek, he does not want labs on pt
[2025-09-25 18:24] VITALS: BP 163/57; PULSE 67; RESP 16; TEMP 36.6; O2SAT 98
== END 2025-09-25 18:25 | disposition home or self-care (01) ==
PROVIDERS: Emergency Provider Emergency Medicine; PCP Physician Assistant
DX: R00.2 Palpitations (principal); R42 Dizziness and giddiness; R51.9 Headache, unspecified; I10 Essential (primary) hypertension; R07.89 Other chest pain; R94.31 Abnormal electrocardiogram [ECG] [EKG]; Z79.899 Other long term (current) drug therapy
CPT/HCPCS: 70450; 71046; 93005; 99283; 99284

== ENCOUNTER → 2025-09-25 16:44 | Outpatient (BNV) | payer MEDICARE, SELFPAY | PROVIDERS: Emergency Provider Emergency Medicine; PCP Physician Assistant; Visit Provider Radiology Diagnostic Radiology | DX: I10 Essential (primary) hypertension (principal); R53.1 Weakness; R07.9 Chest pain, unspecified | CPT/HCPCS: 70450; 71046 ==

== ENCOUNTER → 2025-09-25 16:44 | Outpatient (BNV) | payer MEDICARE, SELFPAY | PROVIDERS: Emergency Provider Emergency Medicine; PCP Physician Assistant; Visit Provider Internal Medicine | DX: I44.0 Atrioventricular block, first degree (principal); I49.1 Atrial premature depolarization | CPT/HCPCS: 93010 ==

== ENCOUNTER 2025-09-29 15:10 | Outpatient (REF) | payer MEDICARE, SELFPAY ==
--- NOTE | ~2025-09-29 | MR_ITS ---
EXAMINATION: MR BRAIN WITHOUT CONTRAST CLINICAL INFORMATION: Other abnormal findings on diagnostic imaging of INSPECTOR SET UP AND LAY OUT. Lvovr-ih-wzgf midline shift seen on CT head 09/25/2025. COMPARISON: CT head 09/25/2025. TECHNIQUE: MRI of the brain was obtained using routine sequences without contrast. Examination performed on a 1.5 Brooke Siemens high-field unit. FINDINGS: There is no diffusion restriction. There is no intracranial hemorrhage, acute infarction, mass effect, or edema. The right lateral ventricle is congenitally larger than the left, a known anatomical normal variant. 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 No true shift of midline is present. Ventricles, sulci, and cisterns are otherwise normal in size and configuration for patient age. No abnormal hemosiderin deposition is identified. There are a scattered punctate and minimally confluent foci of white matter T2 hyperintensity in the periventricular, subcortical, and hemispheric deep white matter. These foci are nonspecific but statistically relate to mild small vessel ischemic changes. Midline structures appear normally formed. The pituitary gland appears normal. Posterior fossa structures appear normal. Cerebellar tonsils are appropriately located. Major flow voids are preserved within the skull base. The globes and orbital contents demonstrate no abnormalities. Paranasal sinuses demonstrate mild mucosal thickening in the bilateral ethmoid sinuses and dependent maxillary sinuses. Sinuses are otherwise normally pneumatized. The mastoids and tympanic cavities are normally aerated. Extracranial soft tissues demonstrate no abnormalities. No suspicious bone marrow changes are evident. 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 MR/MR head/brain wo con IMPRESSION: 1. No evidence of intracranial hemorrhage, acute infarction, mass effect, or edema. 2. 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 There is no true midline shift. This is a KNOWN NORMAL VARIANT, and no further imaging follow-up is required. 3. Mild white matter changes of small vessel ischemia. Electronically signed by: Femi Garduno MD 09/29/2025 04:55 PM EST
== END 2025-09-29 15:11 | disposition home or self-care (01) ==
LOC: HO.MRI 15:10
PROVIDERS: Visit Provider Physician Assistant
DX: R90.89 Other abnormal findings on diagnostic imaging of central nervous system (principal)
CPT/HCPCS: 70551

== ENCOUNTER → 2025-09-29 15:18 | Outpatient (BNV) | payer MEDICARE, SELFPAY | PROVIDERS: Visit Provider Radiology Diagnostic Radiology | DX: R90.82 White matter disease, unspecified (principal); I67.82 Cerebral ischemia; G93.89 Other specified disorders of brain | CPT/HCPCS: 70551 ==

== ENCOUNTER 2025-09-30 09:04 | Outpatient (AMB) | payer MEDICARE, SELFPAY ==
--- NOTE | 2025-09-30 09:07 | MHC.PC.OV ---
Vital Signs 09/30/25 09:10 Height 5 ft 9 in Weight 249 lb BMI 36.8 BP 150/88 H Respiration 16 Pulse 52 Pulse Source Palpation Temp 97.1 F Temp Source Temporal Artery Scan Pulse Oximetry (%) 96 Oxygen Delivery Method Room Air Intake Visit Reasons: [facility] [place] 09/25 high bp Guest Specialist Required: No Accompanied by: Spouse Allergies bee pollen (bee stings) Allergy (Verified 09/30/25 09:18) Swelling Medication List - Last Reconciled 09/30/25 by Shawn Sue PA-C blood pressure test kit-large As directed Tobacco use date assessed: 02/02/25 Dental Screening Dental Screen Date: 02/02/25 HPI [facility] [place] 09/25 high bp HPI Details Patient is a 70-year-old male here today for an ER follow-up visit. Seen at the ER for feeling off and having elevated blood pressures. In the ER he had normal sinus rhythm on his EKG was noted to have premature atrial contractions. 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 There is no true midline shift. This is a KNOWN NORMAL VARIANT, and no further imaging follow-up is required. 3. Mild white matter changes of small vessel ischemia. Since his ER visit he has been changing his diet and being more physically active. We did discuss the possible need to restart cholesterol medication and blood pressure medication though at this time and would like to commence heavy lifestyle and dietary modifications until spring [facility] Medical History Obesity CARLOZ on CPAP Hypercholesterolemia Surgical History H/O left inguinal hernia repair (10/11/20) Hx of colonoscopy History of total right hip replacement (~2013) Family History Father Heart attack Sister Breast cancer Social History Housing: House Are you a primary managed care liaison to a significant other at home: No Do you presently have visiting nurse or other home services: No Alcohol intake: never Patient Tobacco Use Status: Never used Tobacco Tobacco use type: Cigarette e-Cigarette/Vaping Use: Never Used Second Hand Smoke Exposure: No service: No Current occupational status: employed Current occupation: [employer] Cognitive needs: No Hearing needs: No Vision needs: No Questionnaire Thrive Questionnaire Date Thrive assessed: 08/04/25 I am a: Patient What is your living situation today?: I have a steady place to live Within the past 12 months, did the food you bought not last and you didn't have the money to get more?: Never true Within the past 12 months, did you worry whether your food would run out before you got money to buy more?: Never true Do you have trouble paying for medicines?: No Do you have trouble getting transportation to medical appointments?: No Do you have trouble paying your heating and electricity bill?: No Do you have trouble taking care of your child, family member or friend?: No Do you have trouble with day-to-day activities such as bathing, preparing meals, shopping, managing finances, etc.?: No Are you currently unemployed and looking for a job?: No Are you interested in more education?: No Please select the resources that you would like help with: None Currently or been in a relationship where the following occur: No concerns reported THRIVE Score: 0 JULIO CESAR-7 AMB Questionnaire JULIO CESAR-7 Date JULIO CESAR - 7 assessed: 02/02/25 Source: Developed by Drs. Francois Cruz, Laura Morgan, Blue Bowers and colleagues, with an educational chavo from [employer]. Review of Systems Const Denies headache(s) Eyes Denies loss of vision ENT Denies vertigo, Denies dizziness, Denies headache(s) and Denies sore throat Card Denies chest pain, Denies leg edema and Denies lightheadedness Resp Denies cough, Denies hemoptysis and Denies wheezing GI Denies abdominal pain, Denies melena, Denies constipation, Denies diarrhea and Denies vomiting Denies dysuria, Denies urinary frequency and Denies urinary urgency Musc Denies arthralgias, Denies joint swelling, Denies numbness and Denies tingling Neuro Denies Abnormal speech present, Denies behavioral changes, Denies vertigo, Denies dizziness, Denies headache(s), Denies loss of vision, Denies memory loss, Denies numbness and Denies tingling Psych Denies anxiety, Denies behavioral changes, Denies depression, Denies memory loss and Denies panic attacks Miguel/Lymph Denies easy bleeding and Denies easy bruising Aller/Immun Denies wheezing Physical exam (Primary Care) Vital Signs: Last Vital Signs Temp 97.1 F 09/30/25 09:10 Pulse 52 09/30/25 09:10 Resp 16 09/30/25 09:10 BP 150/88 H 09/30/25 09:10 Pulse Ox 96 09/30/25 09:10 Oxygen Delivery Method Room Air 09/30/25 09:10 BMI result Body Mass Index 36.8 Tobacco/Smoking Status: Tobacco use Status Tobacco use date assessed 02/02/25 09/30/25 09:14 Patient Tobacco Use Status Never used Tobacco 09/30/25 09:14 Tobacco use type Cigarette 09/30/25 09:14 e-Cigarette/Vaping Use Never Used 09/30/25 09:14 Thrive Assessment: Date of Thrive Assessment Date Thrive assessed 08/04/25 09/30/25 09:14 Currently or been in a relationship where the following occur: No concerns reported Const General: healthy appearing, no acute distress, alert and awake Nutritional Appearance: well nourished Orientation/consciousness: oriented to person, oriented to place and oriented to time HENMT Ears: TM's normal bilaterally General nose exam: Normal nasal mucous membranes and turbinates present Eyes Conjunctivae: conjunctivae normal Sclerae: sclerae normal Pupils: Equal, round and reactive pupils present Neck Neck: Yes no lymphadenopathy and Yes no JVD Thyroid: Thyroid normal Carotids: no bruits Resp Effort & Inspection: normal respiratory effort and not tachypneic Auscultation: no crackles, no rales, no rhonchi and no wheezes Cardio Rate: regular rate Rhythm: regular rhythm Heart sounds: no murmurs and normal S1 and S2 GI Palpation (GI): Soft to palpation, nontender, no hepatomegaly and no splenomegaly Auscultation: normal bowel sounds Skin General skin exam: no rashes or lesions noted and dry skin Neuro General: oriented to person, oriented to place and oriented to time Cranial nerves: Yes Equal, round and reactive pupils present Speech: No Abnormal speech present Gait exam (Neuro): Normal gait present Motor exam (neuro): no tremor noted Extrem Right upper extremity: full ROM Left upper extremity: full ROM Right lower extremity: full ROM; no edema Left lower extremity: full ROM; no edema Psych Mental Status: mental status grossly normal Speech and movement: Normal speech and movement present Affect: normal affect Attitude: cooperative Thought process: Normal thought process present Coding Level of Care Code Est Pt Level 4 (68333) Diagnoses Primary hypertension I10 Hypertension type: primary hypertension Mixed hyperlipidemia E78.2 Hyperlipidemia type: mixed hyperlipidemia CALROZ (obstructive sleep apnea) G47.33 Class 2 obesity E66.812 Elevated TSH R79.89 Atrial premature beats I49.1 Assessment & Plan Assessment & Plan (1) HTN (hypertension): Code(s): I10 - Essential (primary) hypertension Category: Medical Qualifiers: Hypertension type: primary hypertension Qualified Code(s): I10 - Essential (primary) hypertension Plan: Blood pressure remains elevated today in office. We did discuss the possible need a starting blood pressure medication. Specific goals include lowering blood pressure to <140/90 mmHg, reducing LDL cholesterol to <130 mg/dL, and normalizing TSH to a range of 0.3-4. The patient will continue to monitor blood pressure at home. (2) HLD (hyperlipidemia): Code(s): E78.5 - Hyperlipidemia, unspecified Category: Medical Qualifiers: Hyperlipidemia type: mixed hyperlipidemia Qualified Code(s): E78.2 - Mixed hyperlipidemia Plan: As above patient's cholesterol borderline high hand we did discuss the possible need a restarting statin therapy. He would like to work extensively on lifestyle and diet modification. Goal LDL to be below 130 (3) CARLOZ (obstructive sleep apnea): Code(s): G47.33 - Obstructive sleep apnea (adult) (pediatric) Category: Medical Plan: Patient continues with nightly use of his CPAP machine. \ The option of Zepbound for weight loss and CARLOZ was discussed as a potential future therapy. (4) Class 2 obesity: Code(s): E66.812 - Obesity, class 2 Category: Medical Plan: Patient does understand his BMI is over 35 Will continue to work on lifestyle and dietary modification (5) Elevated TSH: Code(s): R79.89 - Other specified abnormal findings of blood chemistry Category: Medical Plan: Continues to have elevated TSH. He is apprehensive and starting thyroid medication at this time. If TSH remains elevated at next office visit will consider low-dose levothyroxine (6) Atrial premature beats: Code(s): I49.1 - Atrial premature depolarization Category: Medical Plan: Patient has a long history of premature atrial contractions likely secondary to his obstructive sleep apnea and high blood pressure. He is mostly asymptomatic though does feel at times as skipped beat. He will continue working on lifestyle. We will consider beta-kevin if he becomes more symptomatic.
[2025-09-30 09:10] VITALS: BP 150/88; PULSE 52; RESP 16; TEMP 36.2; O2SAT 96; BMI 36.8
== END 2025-09-30 09:50 | disposition home or self-care (01) ==
LOC: HO.HMCH 09:05
PROVIDERS: PCP Physician Assistant; Visit Provider Physician Assistant
DX: I10 Essential (primary) hypertension (principal); E78.2 Mixed hyperlipidemia; E66.812 Obesity, class 2; Z68.36 Body mass index [BMI] 36.0-36.9, adult; G47.33 Obstructive sleep apnea (adult) (pediatric); R79.89 Other specified abnormal findings of blood chemistry; I49.1 Atrial premature depolarization

== ENCOUNTER → 2025-09-30 09:04 | Outpatient (BNVA) | payer MEDICARE, SELFPAY | PROVIDERS: PCP Physician Assistant; Visit Provider Physician Assistant | DX: Z09 Encounter for follow-up examination after completed treatment for conditions other than malignant neoplasm (principal); E78.2 Mixed hyperlipidemia; G47.33 Obstructive sleep apnea (adult) (pediatric); E66.812 Obesity, class 2; R79.89 Other specified abnormal findings of blood chemistry; I49.1 Atrial premature depolarization | CPT/HCPCS: 99212 ==